=== PATIENT | female | born 1965 | race Caucasian/White ===

== ENCOUNTER 2023-05-23 06:06 | Day surgery (SDC) | payer BC, SELFPAY ==
[2023-05-23] VITALS (11 sets, daily range): BP systolic 115–137; BP diastolic 71–90; BMI 32.3
[2023-05-23] MEDS: TYLENOL 1000 MG PO (06:23)
[2023-05-23] MEDS: NORMOSOL-R 1000 IV (06:45)
--- NOTE | 2023-05-23 07:03 | W.SUR.PREOP ---
Pre-Operative Surgical Note
-
I have examined this patient prior to the performance of the scheduled procedure.
The patient's condition is unchanged from the time of the current History and
Physical and the patient is able to undergo the scheduled procedure.
--- NOTE | 2023-05-23 09:13 | W.IMMPOSTOP ---
Addendum entered and electronically signed by Nitish Ardon MD 05/23/23 09:23:
# [id number]
Original Note:
Surgical Immed Post Op Note
-
Primary Surgeon: Reva
Assisting Surgeon: None
Pre-op Diagnosis: Chronic calculus cholecystitis, history of percutaneous cholecystostomy tube
Post-op Diagnosis: Chronic calculus cholecystitis, history of percutaneous cholecystostomy tube
Procedure Performed: Laparoscopic cholecystectomy
Anesthesia Type: GETA +0.25% Marcaine
Specimen / Cultures: Gallbladder
Estimated Blood Loss: 10 mL
Complications: None immediate
Operative Findings: Previous percutaneous cholecystostomy tube dislodged and encased within the omentum. Removed. Cholecystectomy completed. Cystic duct and artery individually controlled with hemoclips. Gallbladder removed off liver bed intact.
Some scarring along liver margin suggestive of previous percutaneous cholecystostomy tube tract from a transhepatic approach. Gallbladder extracted at epigastric 12 mm trocar site.
Plan: Routine postop care, DC home
[2023-05-23] MEDS: MOTRIN 600 MG PO (11:25)
== END 2023-05-23 11:45 | disposition home or self-care (01) ==
LOC: SDS 06:06
PROVIDERS: ATTENDING PHYSICIAN Surgery
DX: K80.10 Calculus of gallbladder with chronic cholecystitis without obstruction (principal); Z98.890 Other specified postprocedural states
CPT/HCPCS: 47562; 88304

== ENCOUNTER 2023-08-06 05:51 | Day surgery (SDC) | payer BC, SELFPAY ==
[2023-07-23 12:44] VITALS: BMI 34.9
[2023-07-23 13:32] LABS: % Basophils 0.7 % (0-2); % Eosinophils 1.3 % (0-6); % Immature Granulocytes 0.3 % (0-0.5); % Lymphocytes 24.5 % (20.5-51.1); % Monocytes 10.2 % (1.7-9.3); Absolute Basophils 0.1 10^3/uL (0-0.2); Absolute Eosinophils 0.1 10^3/uL (0-0.7); Absolute Lymphocytes 1.8 10^3/uL (1.2-3.4); Absolute Monocytes 0.7 10^3/uL (0.1-0.6); Absolute Neutrophils 4.5 10^3/uL (1.4-6.5); Hematocrit 38.8 % (37.0-47.0); Mean Corp Hgb Conc. 33.5 g/dL (33.0-37.0); Mean Corpuscular Hgb 28.4 pg (27.0-31.0); Mean Corpuscular Volume 84.7 fL (81.0-99.0); Nucleated Red Blood Cells % 0 %; Platelet Count 296 10^3/uL (130-400); Red Blood Cell Count 4.58 10^6/uL (4.20-5.40); Red Cell Dist. Width 15.7 % (11.5-14.5); White Blood Cell Count 7.2 10^3/uL (4.8-10.8)
[2023-07-23 13:36] LABS: INR 1.71; PT 20.2 Sec (11.4-14.6)
[2023-07-23 13:37] LABS: ALT (SGPT) 40 U/L (0-35); AST (SGOT) 50 U/L (14-36); Albumin 4.2 g/dl (3.5-5.0); Alkaline Phosphatase 65 U/L (38-126); Blood Urea Nitrogen 15 mg/dl (7-17); Calcium 9.6 mg/dl (8.4-10.2); Carbon Dioxide 22 mmol/L (22-30); Chloride 109 mmol/L (98-107); Estimated Creatinine Clearance 90 ml/min; Glucose 100 mg/dl (70-99); Magnesium 2.1 mg/dl (1.6-2.3); Potassium 3.8 mmol/L (3.5-5.1); Sodium 138 mmol/L (135-145); Total Bilirubin 1.1 mg/dl (0.2-1.3); Total Protein 6.5 g/dl (6.3-8.2); eGFR > 60.00
--- NOTE | 2023-07-23 14:29 | HPS.HSE ---
Family Physician
-
Family Physician: Chepe Ricks
Chief Complaint
-
Paroxysmal atrial fibrillation.
History of Present Illness
The patient is a 58 year old female presenting today for paroxysmal atrial fibrillation. Her primary language is [place]; however, her spouse, Darlyn, is present for translation. She reports a wide variety of symptoms associated with
this arrhythmia, which include palpitations, dyspnea especially with exertion, and fatigue. She previously underwent a cardioversion late last year due to her atrial fibrillation. She is on current pharmacological therapy with Digoxin, Metoprolol
Tartrate, and Verapamil. She takes Xarelto for oral anticoagulation. She notes that her current symptoms greatly interfere with her activities of daily living and are overall impacting her quality of life. She is interested in pursuing pulmonary
vein isolation for further arrhythmia management. She denies any current complaints today such as chest pain or shortness of breath at rest, nausea, vomiting, diarrhea, lightheadedness, dizziness, cough, sore throat, or fever.
Medical History
Past Medical History
Past Medical History: Reports Other
Additional Past Medical History:
1. Paroxysmal atrial fibrillation, status post cardioversion 2022; pharmacological therapy with Digoxin, Metoprolol Tartrate, and Verapamil, oral anticoagulation with Xarelto.
2. Hypertension.
3. Mild-moderate aortic regurgitation.
4. Mild mitral regurgitation.
5. Small pericardial effusion on chest CT 07/23/2023.
6. Sarcoidosis with mediastinal and hilar lymphadenopathy.
7. Small left and ilpjk-cc-qazwicwl right pleural effusions on chest CT 07/23/2023.
8. Chronic constipation.
9. Mildly elevated transaminases.
10. Obesity, BMI 34.8.
11. Remote history of tobacco abuse.
Past Surgical History: Reports Other
Additional Past Surgical History:
1. Cardioversion.
2. Cholecystectomy.
3. Lung biopsy.
Social History
Tobacco: Former Smoker (She is a former infrequent cigarette smoker who quit tobacco altogether 40+ years ago. )
Alcohol: Other (Seldom alcohol use reported. )
Living: Other (She lives with her spouse and son in a 2 story home. )
Family History
Family History: Not pertinent
Allergies / Home Medications
Allergy/Medication List:
Home medications:
1. Digoxin 125 mcg p.o. daily.
2. Metoprolol tartrate 50 mg p.o. twice a day.
3. Olmesartan 40 mg p.o. at bedtime.
4. Miralax 17 grams p.o. daily.
5. Verapamil 360 mg p.o. daily.
6. Xarelto 20 mg p.o. every evening.
7. Hydrochlorothiazide 25 mg p.o. daily.
Allergies: No known allergies.
Review of Systems
-
A 12 point ROS was completed and negative except as noted: Yes
Physical Exam
Vital Signs
Blood pressure 140/88. Heart rate 74. Respirations 18. Pulse ox 96% on room air.
Height 5 feet, 5.5 inches. Weight 96.4 kg. BMI 34.8.
Physical Exam
General: Well Developed, Well Nourished and No Apparent Distress
HEENT: NormoCephalic, Moist mucous membranes, Atraumatic and PERRLA
Respiratory: Clear
Cardiac: Irregular Rhythm
GI: Soft, Non Tender, Non Distended and Other (Obese. )
Musculoskeletal: Normal Gait & Station
Skin: Warm and Dry
Neuro: AO x 3 and Nonfocal/grossly intact
Laboratory Results
-
07/23/23 13:16
07/23/23 13:16
Laboratory Results
PT 20.2 Sec (11.4-14.6) H 07/23/23 13:16
INR 1.71 07/23/23 13:16
Total Bilirubin 1.1 mg/dl (0.2-1.3) 07/23/23 13:16
AST 50 U/L (14-36) H 07/23/23 13:16
ALT 40 U/L (0-35) H 07/23/23 13:16
Alkaline Phosphatase 65 U/L (38-126) 07/23/23 13:16
Type and screen: A negative.
EKG 07/23/2023: Atrial fibrillation with competing junctional pacemaker.
Chest CT 07/23/2023: Short segment common vestibule for the left superior and inferior pulmonary veins, fairly commonly seen and considered normal variant. No evidence for left atrial thrombus. Small left and skvyu-mp-lhizuaph right pleural
effusions. Small pericardial effusion. Mildly enlarged mediastinal and hilar lymphadenopathy, likely reactive.
Echocardiogram 03/14/2021: Normal left ventricular size, wall thickness, and systolic function. No regional wall motion abnormalities are seen. The ejection fraction is estimated at 60-65%. Grade 2 diastolic dysfunction. Mild to moderate aortic
regurgitation. Mild rheumatic changes of the mitral valve no evidence of mitral stenosis and mild mitral regurgitation.
Impression/Plan
-
IMPRESSION/PLAN:
1. Paroxysmal atrial fibrillation: The patient is in need of pulmonary vein isolation with Dr. Marino Paredes on 08/06/2023. The benefits and risks of the procedure have been explained to the patient. The patient understands these risks and wishes to
proceed. She will not be required to undergo a pre-procedural transesophageal echocardiogram as she has been compliant with her home oral anticoagulation. She is aware to continue her Xarelto up until the night prior to her procedure unless she is
otherwise specified by her surgeon.
2. Small left and meucb-il-yfdcnqas right pleural effusions, small pericardial effusion: Results discussed with surgeon pre-operatively. She was previously taking Hydrochlorothiazide 25 mg p.o. 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 Saeed Arguello. Both the patient and her spouse deny this was stopped due to an adverse reaction. She was advised to go back on this medication daily for treatment. She confirms that she has enough tablets at home to last her
approximately 1 month.
[2023-08-06] VITALS (11 sets, daily range): BP systolic 109–140; BP diastolic 77–96; BMI 34.3
[2023-08-06 09:05] LABS: ACT-LR - POC 366 Seconds (116-155)
[2023-08-06 09:22] LABS: ACT-LR - POC 287 Seconds (116-155)
[2023-08-06 09:46] LABS: ACT-LR - POC 281 Seconds (116-155)
--- NOTE | 2023-08-06 10:21 | ITS.CL.ABL ---
Certified Breastfeeding Educator - Ablation
Ablation
Procedure Report:
ELECTROPHYSIOLOGY ABLATION STUDY
DATE:: August 06, 2023 REFERRING: Dr. Saeed Arguello
INDICATION: Persistent supraventricular tachycardia in the form of atrial fibrillation.
HISTORY: See H and P. As above
ANTIARRHYTHMIC DRUG: Verapamil, metoprolol, digoxin
PRE-PROCEDURE VICTOR MANUEL: No atrial thrombus
PRESENTING RHYTHM: Atrial fibrillation
'TIME-OUT': called and confirmed.
SEDATION/ANESTHESIA: provided via the anesthesia department using general anesthesia (LMA).
INTRAVENOUS/ARTERIAL ACCESS:
Right femoral venous - 10 Fr, 8Fr
Left femoral venous - 8 Fr, 6 Fr
Left femoral arterial - 5 Fr
Ultrasound guidance for bilateral femoral vein access was utilized by me to obtain access with demonstration of normal anatomy
CHADS-VASC Score:
HAS-Bled Score
PROCEDURE:
1. A decapolar CS catheter was placed within the CS for mapping and pacing. This was also used as the reference catheter for the 3-D map.
2. The intracardiac ultrasound catheter was positioned in the RA to identify the FO for targeting of transseptal puncture, assist in identification of the pulmonary vein ostia, monitoring pre and post ablation pulmonary vein flow velocities,
monitoring for 'bubble' formation during RF application as a sign of thermal injury, and to monitor for pericardial effusion during mapping and ablation procedure. Left atrial size, LV ejection fraction, and pulmonary vein flows were monitored
pre and post ablation procedure. The other valves were inspected and found to be free of significant regurgitation or stenosis.
3. Half of the calculated heparin bolus was administered prior to the first transeptal puncture. Transseptal puncture was performed to diagnose RA and LA pressure so that safety of LA mapping and ablation could be further assessed, and to access
the left atrium and pulmonary veins for mapping and ablation. This entailed advancing an 8 Fr SL-1 sheath with dilator into the superior vena cava and withdrawing both (monitoring intracardiac ultrasound, fluoroscopy and tip pressure) with the tip
oriented toward the atrial septum. The fossa ovalis was engaged (indicated by sudden displacement of the sheath tip as well as tenting of the fossa seen on intracardiac ultrasound). Left atrial access required a pass with the Brock[place]rough needle
extended. Left atrial catheter position was confirmed by pressure monitoring (RA mean pressure 8 mm Hg and LA mean presure 14 mm Hg), LA saturation (99%), as well as fluoroscopy. The sheath was advanced over the dilator and positioned in the left
atrium. This procedure was repeated for the Agilis sheath. The remainder of the calculated heparin bolus was administered and heparin was
infused to maintain ACT at 300 -350 seconds throughout the case.
4. RA pacing was performed via the proximal decapolar poles and LA pacing was performed via the distal decapolr poles.
5. A quadrapolar catheter was first positioned at the His position for His Bundle recording which was tagged via the 3-D Navex sytem, and then passed to the RVA for RV pacing and recording.
6. The 20 mm cryoballoon and 15 mm octapolar G40 catheter placed each of the LIPV, LSPV, RSPV and the RIPV.
7. Next, a 3-D map was created using Navex. A 3-D reconstructed CT image was compared to the 3-D Navex map to assist in anatomic interpretation, mapping and ablation. The CT image and the NavX image were fused.
8. Pulmonary vein and extrapulmonary vein lesions were given. The 23 mm cryoballoon was utilized to get the distal vania of the left veins with a 2-minute freezing application from the superior vania and inferior vania durably isolating the
left system. Prior to this a 28 mm cryoballoon utilized an extrapulmonary vein lesion to the roof for 2 minutes outside the left superior pulmonary vein and a second 4-minute freezing application of the posterior wall outside the left superior
pulmonary vein. For the pulmonary veins 1 distinct 3 and 1 distinct 2-minute freeze application left superior pulmonary vein, 2 distinct 3-minute freezing pulmonary applications to the left inferior pulmonary vein, one 3.5-minute freezing
application to the right superior pulmonary vein and one 3.5 and one 2-minute freezing application to the right inferior pulmonary vein. This led to entrance block in all 4 pulmonary veins and the patient was converted to sinus rhythm with 1 200 J
synchronized biphasic shock.
EP study post cardioversion demonstrated no other inducible tachyarrhythmia.
9. Normal sinus and AV node function noted.
TOTAL FLOURO TIME: 16.7 minutes 160 mGy
TOTAL RF DURATION: 0 minutes
REVERSAL OF HEPARIN: 35 mg of protamine, slow IV administration
COMPLICATIONS:
None
Intracardiac US shows no pericardial effusion post ablation.
SUMMARY:
Complex left atrial mapping and ablation.
Isolation of all 4 pulmonary veins as above. Extrapulmonary vein lesions to the roof and the posterior wall outside the left superior pulmonary vein. A 23 mm cryoballoon was utilized for the distal vania and the left system in addition to the
above.
RECOMMENDATIONS:
1. Admit to monitored bed.
2. Resume anticoagulation
3. Out of bed 4 hours
4. Discontinue digoxin and consider the same to discharge
Copy to: Dr. Saeed Arguello
--- NOTE | 2023-08-06 15:29 | W.PN.UPDATE ---
Update Note
Progress Note Update
58 yo WF s/p PVI (same day)/ She feels good, mild sore throat, no cp, sob, phillip diet, voiding, amb w/o dizziness. EKG SR no ecotpy, b/l groins c/d/i no HT, soft. She will take her Xarelto at 4pm at home. She will continue metoprolol. Activity
restrictions reviewed. She will f/u Dr. Arguello in 3 mo. She is for d/c home after 3pm.
SUMMARY:
Complex left atrial mapping and ablation.
Isolation of all 4 pulmonary veins as above. Extrapulmonary vein lesions to the roof and the posterior wall outside the left superior pulmonary vein. A 23 mm cryoballoon was utilized for the distal vania and the left system in addition to the
above.
RECOMMENDATIONS:
1. Admit to monitored bed.
2. Resume anticoagulation
3. Out of bed 4 hours
4. Discontinue digoxin and consider the same to discharge
Copy to: Dr. Saeed Arguello
== END 2023-08-06 15:25 | disposition home or self-care (01) ==
LOC: CATH 05:51
PROVIDERS: ATTENDING PHYSICIAN Internal Medicine Cardiovascular Disease; FAMILY PHYSICIAN Internal Medicine; OTHER PHYSICIAN Internal Medicine Cardiovascular Disease
DX: I48.0 Paroxysmal atrial fibrillation (principal); R06.00 Dyspnea, unspecified; R53.83 Other fatigue; R00.2 Palpitations; I10 Essential (primary) hypertension; I34.0 Nonrheumatic mitral (valve) insufficiency; I31.39 Other pericardial effusion (noninflammatory); D86.9 Sarcoidosis, unspecified; R59.0 Localized enlarged lymph nodes; J90 Pleural effusion, not elsewhere classified; K59.09 Other constipation; E66.9 Obesity, unspecified; Z68.34 Body mass index [BMI] 34.0-34.9, adult; Z87.891 Personal history of nicotine dependence; Z79.01 Long term (current) use of anticoagulants
CPT/HCPCS: C1894; C1733; C1730 ×2; C1893; C1766; 36415; 75572; 76937; 80053; 83735; 85025; 85347; 85610; 86850; 86900; 86901; 93005; 93656; Q9967

== ENCOUNTER 2024-05-10 06:33 | Inpatient (IN) | payer BC, SELFPAY ==
[2024-05-10] VITALS (35 sets, daily range): BP systolic 112–157; BP diastolic 68–102; BMI 33.2; BMI 33.3
[2024-05-10] MEDS: CARDIZEM 20 MG IV (02:39)
[2024-05-10 02:40] LABS: % Basophils 0.2 % (0-2); % Eosinophils 0.2 % (0-6); % Immature Granulocytes 0.3 % (0-0.5); % Lymphocytes 15.7 % (20.5-51.1); % Monocytes 8.1 % (1.7-9.3); % Neutrophils 75.5 % (42.2-75.2); Absolute Lymphocytes 1.9 10^3/uL (1.2-3.4); Absolute Neutrophils 9.2 10^3/uL (1.4-6.5); Hematocrit 39.5 % (37.0-47.0); Hemoglobin 13.5 g/dL (12.0-16.0); Mean Corp Hgb Conc. 34.2 g/dL (33.0-37.0); Mean Corpuscular Volume 90.8 fL (81.0-99.0); Mean Platelet Volume 10.2 fL (7.4-10.4); Nucleated Red Blood Cells % 0 %; Platelet Count 309 10^3/uL (130-400); Red Blood Cell Count 4.35 10^6/uL (4.20-5.40); Red Cell Dist. Width 12.8 % (11.5-14.5); White Blood Cell Count 12.2 10^3/uL (4.8-10.8)
[2024-05-10] MEDS: CARDIZEM 125 IV ×4 (02:41→22:29)
--- NOTE | 2024-05-10 02:43 | ED.GENMED ---
History of Present Illness
General
Chief Complaint: Cardiac Symptoms
Source: patient and family
Exam Limitations: none
Time Seen by Provider: 05/10/24 01:59
Nursing documentation reviewed up to this point in time: agreed with
History of Present Illness
History of Present Illness:
Pleasant 58-year-old female presents to the emergency department with palpitations, chest pain, and weakness. Patient does have a history of paroxysmal atrial fibrillation and is on Xarelto. She reports that the symptoms began on Friday and have
been progressively worsening. Denies fever, chills, nausea or vomiting. She has had a cardiac ablation in the past. She does follow with an [place] brimmer blocker. She has also been compliant with her other medications.
Review of Systems
Review of Systems
Allergies reviewed?: Yes
All Other Systems: ROS reviewed and negative except as documented in HPI and ROS
Constitutional: Reports fatigue and sleep disturbance
EENT: Reports no symptoms
Respiratory: Reports no symptoms
Cardiac: Reports chest pain and palpitations
ABD/GI: Reports no symptoms
: Reports no symptoms
Musculoskeletal: Reports no symptoms
Skin: Reports no symptoms
Neurological: Reports no symptoms
Endocrine: Reports no symptoms
Hematologic/Lymphatic: Reports no symptoms
Psychiatric: Reports no symptoms
Phy Exam
General Physical Exam
General Presentation: well appearing and mild distress
General age: appears stated age
General Skin: warm and dry
General Habitus: normal
General Mental: alert
General Hydration: appears well hydrated
ENT Exam
ENT Exam: EOMI, pharynx normal, neck supple and normocephalic
Eye Exam
Eye Exam: PERRL, cornea clear and conjunctiva normal
Cardiovascular Exam
Cardiovascular Exam: no edema, no murmur, normal peripheral pulses and irregularly irregular
Pulmonary Exam
Pulmonary Exam: lungs clear, no respiratory distress, no rales, no crackles, no rhonchi, no stridor, no wheezing and no cough
Gastrointestinal Exam
Gastrointestinal Exam: normal bowel sounds, non tender, soft, no organomegaly, no pulsatile mass and non distended
Neurological Exam
Neurological Exam: alert, oriented x3, no motor deficits and speech normal
Musculoskeletal Exam
Musculoskeletal Exam: full ROM and no edema
Skin Exam
Skin Exam: normal color, warm/dry, no rash and no petechia
Psychiatric Exam
Psychiatric Exam: normal mood/affect
Course
Orders/Labs/Results
Orders:
Orders
05/10/24 01:41
ECG [Electrocardiogram (*1)] Urgent
Reason for Study: Chest Pain
EKG- Treatment ONCE
05/10/24 02:13
Cardiac Monitoring- Treatment ONCE
CR Chest - 2 Views Urgent
Comment:
Reason For Exam: palpitations
05/10/24 02:19
Complete Blood Count/With Diff Urgent
Comprehensive Metabolic Panel Urgent
Magnesium Urgent
PTT Urgent
Prothrombin Time Urgent
TSH Urgent
Troponin I Urgent
05/10/24 02:27
Diltiazem 125 mg/125 ml Nss [Cardizem] 125 mg in 125 ml IV NOW
Initial dose in mg/hr, then titrate:: 5
Titrate to keep:: Heart rate 80-100 bpm
Titrate by mg/hr:: 5 mg/hr
Frequency of titrations (minutes):: 15
Maximum dose in mg/hr:: 15
Diltiazem HCl [Cardizem] 20 mg IV NOW STA
Abnormal Lab Results
05/10/24
02:19
WBC 12.2 H 10^3/uL
(4.8-10.8)
Absolute Neuts (auto) 9.2 H 10^3/uL
(1.4-6.5)
Absolute Monos (auto) 1.0 H 10^3/uL
(0.1-0.6)
Neutrophils % 75.5 H %
(42.2-75.2)
Lymphocytes % 15.7 L %
(20.5-51.1)
PT 25.0 H Sec
(11.4-14.6)
APTT 43.0 H Sec
(23.4-35.0)
BUN 28 H mg/dl
(7-17)
Creatinine 1.2 H mg/dL
(0.6-1.0)
Glucose 153 H mg/dl
(70-99)
AST 38 H U/L
(14-36)
ALT 41 H U/L
(0-35)
Troponin I 0.133 H* ng/ml
05/10/24 02:19
05/10/24 02:19
Vital Signs
Initial and Last Documented VS:
Initial Vital Signs
Temp Pulse Resp Pulse Ox
97.8 F 144 24 98
05/10/24 01:49 05/10/24 01:49 05/10/24 01:49 05/10/24 01:49
Last Documented Vital Signs
Temp Pulse Resp BP Pulse Ox
97.8 F 94 22 140/97 95
05/10/24 01:49 05/10/24 05:00 05/10/24 05:00 05/10/24 05:00 05/10/24 05:00
*Critical Care Note
Total Time (30-74mins, 75-104mins- exclusive of procedures): Not Applicable
ED Attending Note
-
Portions of this chart may have been created with voice recognition software.� Occasional wrong word or��sound alike� substitutions may have occurred due to the inherent limitations of voice recognition software.
Discharge Plan
Departure
Patient Disposition: Admit
Date of Disposition: 05/10/24
Time of Disposition: 06:02
Admit to: IVU
Presentation/result/management discussed w/ accepting MD/DO: Hospitalist
Discharge Problem:
Atrial fibrillation, Chest pain
Prescriptions:
No Action
verapamil 360 mg Capsule,Ext Rel. Pellets 24 Hr
360 mg PO DAILY
olmesartan 40 mg Tablet
40 mg PO HS
Xarelto 20 mg Tablet
20 mg PO QPM
polyethylene glycol 3350 [Miralax] 17 gram Powder In Packet
17 g PO DAILY
metoprolol tartrate 50 mg Tablet
50 mg PO BID
hydrochlorothiazide 25 mg Tablet
25 mg PO DAILY
Referrals:
Chepe Ricks MD [Family Provider] -
Interventions
Interventions:
*Risk Screen - Suicide Last Done: 05/10/24 02:10
*General Assessment Last Done: 05/10/24 02:10
*Neglect/Abuse Screening Last Done: 05/10/24 02:10
ED- Fall Risk Assessment Last Done: 05/10/24 02:10
*ED COVID-19 Vaccine History Last Done: 05/10/24 02:10
ED- Pulmonary Assessment Last Done: 05/10/24 02:10
ED- Cardiac Assessment Last Done: 05/10/24 02:10
Discharge Date and Time
Print Language: OCCITAN
[2024-05-10 02:49] LABS: INR 2.26
[2024-05-10 02:55] LABS: ALT (SGPT) 41 U/L (0-35); AST (SGOT) 38 U/L (14-36); Albumin 4.4 g/dl (3.5-5.0); Alkaline Phosphatase 68 U/L (38-126); Blood Urea Nitrogen 28 mg/dl (7-17); Calcium 9.7 mg/dl (8.4-10.2); Carbon Dioxide 22 mmol/L (22-30); Chloride 103 mmol/L (98-107); Estimated Creatinine Clearance 62 ml/min; Glucose 153 mg/dl (70-99); Potassium 3.8 mmol/L (3.5-5.1); Sodium 138 mmol/L (135-145); Total Bilirubin 0.7 mg/dl (0.2-1.3); Total Protein 6.8 g/dl (6.3-8.2)
[2024-05-10 03:18] LABS: Troponin I 0.133 ng/ml
[2024-05-10 03:41] LABS: TSH 1.87 uIU/ml (0.47-4.68)
--- NOTE | 2024-05-10 06:03 | HPS.HSE ---
Family Physician
-
Family Physician: Chepe Ricks
Chief Complaint
-
Chest pain, tachycardia
History of Present Illness
This is a 58-year-old female with past medical history of hypertension, proximal atrial fibrillation status post ablation and cardioversion who is currently anticoagulated presenting to the emergency department with approximately 4 days of
intermittent chest pain.
Patient reports onset of chest pain 4 days ago. She was not doing any particular activity at that time. She reports that when she had pain was a burning sensation in the midsternal region rising up to her neck and associated with tachycardia as
well as high as 160 and a blood pressure of 200 systolic. She took extra doses of nifedipine and clonidine with improvement in her blood pressure. However this also resulted in hypotensive episode. He reported that her heart rate did improve as
well to around 100. However he has remained irregular and has been running intermittently high since then. She reports dyspnea on exertion but no exertional chest pain. She denies any vomiting. She reports having some sweating. She reported
that she had similar episode of chest pain today but this time the pain seemed to radiate down into her abdomen which actually prompted her to come to the emergency department. She reports compliance with her Xarelto. She is however not on any
selective beta-nayana but rather on labetalol.
Of note patient had an ablation in July 2023. She had good dual rhythm control status post ablation until August. She was traveling in [place] at a time and had recurrence of A-fib RVR. She was hospitalized for several days where she had
attempted cardioversion x 3. She had successful conversion to sinus rhythm after third cardioversion. She reports that she has been in regular rhythm as checked by IR [employer] device since then up until 4 days ago.
She denies any recent lower extremity swelling. She denies recent orthopnea PND or rapid weight gain. She denies any recent exertional chest pain.
In the emergency department she was afebrile, she was tachycardic to as high as 160, blood pressure was 140/90. She was at 95% on room air. ECG showed atrial fibrillation with rapid ventricular response at a rate of 134. Troponin was 0.133. He
had slight elevations in AST and ALT. INR was 2.26. Electrolytes was unremarkable, BUN/creatinine were stable except for a slight rise in creatinine to 1.2 from 0.8. Chest x-ray shows no acute infiltrates. There is no mediastinal widening.
She is currently chest pain-free after being placed on diltiazem with some rate control due to the 110s.
Medical History
Past Medical History
Past Medical History: Reports Arrhythmia (Paroxysmal atrial fibrillation), HTN, Hypercholesterolemia and Valvular Disease (Aortic valve insufficiency)
Past Surgical History: Reports Cholecystectomy
Social History
Tobacco: Non-smoker
Alcohol: Occasional
Drug: None
Personal:
Living: With Family
Family History
Family History: Not pertinent
Allergies / Home Medications
Allergies reflects when Allergies were last updated in [facility].
Home Medications with original date entered in [facility]
Allergy/Medication List:
Allergies
Allergy/AdvReac Type Severity Reaction Status Date / Time
No Known Allergies Allergy Verified 05/10/24 01:40
Home Medications
olmesartan 40 mg tablet 40 mg PO HS 05/21/23
rivaroxaban 20 mg tablet (Xarelto) 20 mg PO QPM 05/21/23
Labetalol 300 mg tablet 300 mg p.o. twice daily
Nifedipine 60 mg tablet 60 mg p.o. daily
Clonidine 0.1 mg tablet 0.1 mg p.o. as needed
Review of Systems
-
History Source: Patient
Constitutional: Reports No Symptoms
EENT: Reports No Symptoms
Respiratory: Reports No Symptoms
Cardiac: Reports Chest Pain
Abdomen/GI: Reports No Symptoms
: Reports No Symptoms
Musculoskeletal: Reports No Symptoms
Skin: Reports No Symptoms
Neurological: Reports No Symptoms
Endocrine: Reports No Symptoms
Hematologic/Lymphatic: Reports No Symptoms
Psych: Reports No Symptoms
Physical Exam
Vital Signs
Vital Signs
Temp Pulse Resp BP Pulse Ox
97.8 F 96 25 133/87 95
05/10/24 01:49 05/10/24 06:00 05/10/24 06:00 05/10/24 06:00 05/10/24 06:00
Physical Exam
General: Well Developed, Well Nourished, No Apparent Distress, Comfortable and Conversant
HEENT: NormoCephalic, Anicteric, Moist mucous membranes and Atraumatic
Respiratory: Clear
Cardiac: S1/S2, Irregular Rhythm and Tachycardia
Breast: Deferred by me
GI: Soft, Non Tender, Non Distended and Normal Bowel Sounds
Rectal: Deferred by Provider
Genito-urinary: Deferred by me
Musculoskeletal: No Clubbing, No Cyanosis and No Edema
Skin: Warm
Neuro: AO x 3 and Nonfocal/grossly intact
Hematologic/Lymphatic: No Lymphadenopathy
Psych: Calm
Laboratory Results
-
05/10/24 02:19
05/10/24 02:19
Laboratory Results
PT 25.0 Sec (11.4-14.6) H 05/10/24 02:19
INR 2.26 05/10/24 02:19
APTT 43.0 Sec (23.4-35.0) H 05/10/24 02:19
Total Bilirubin 0.7 mg/dl (0.2-1.3) 05/10/24 02:19
AST 38 U/L (14-36) H 05/10/24 02:19
ALT 41 U/L (0-35) H 05/10/24 02:19
Alkaline Phosphatase 68 U/L (38-126) 05/10/24 02:19
Troponin I 0.133 ng/ml H* 05/10/24 02:19
Data Reviewed
-
Diagnostic Radiology: Image Personally Visualized and interpreted
Medical Tests (Nuc Med, Echo, EKG etc): Image Personally Visualized and interpreted
Lab Data: Labs Reviewed by me
Old Records: Reviewed
Impression/Plan
-
IMPRESSION:
58-year-old with a history of functional atrial fibrillation status post ablation and multiple cardioversions in the last year presenting to the emergency department with A-fib RVR and a burning chest pain that seems to have been intermittent over
the last 4 days. Troponin is elevated at 0.13, ECG consistent with A-fib RVR at [address]-T wave changes. Labs essentially unremarkable. While or description of chest pain could be CAD, it fits more likely a rate related ischemia given
her tachycardia to 1 60 during onset of pain and improvement with rate control on diltiazem. However cannot rule out a dissection either. She has been compliant with her Xarelto and INR was 2.2 on arrival. No obvious acute abnormalities on chest
x-ray.
PLAN:
1. Chest pain - demand ischemia vs CAD vs dissection (radiation down to the abdomen/pelvis but not arms, jaws, shoulder). Also possible GERD. Currently CP free.
- admit to ivu
- already on AC and therapeutic
- aspirin 324 x 1
- will check CT chest abd pelvis dissection study
- trend troponin
- echo,
- cardiology consult
2. AFIB RVR - uncontrolled rate, some rheumatic finding on aortic and mitral valves recent echo with moderate MR, mild to moderate AI with central jet
- on Xarelto
- rate control with diltiazem gtt for now
- NPO, history of some resistance to cardioversion but if demand ischemia, may need CV
- has been compliant with Xarelto for 2 years, no missing doses, so likely does not need VICTOR MANUEL
- echo as above
3. HTN - patient on likely less than ideal regimen
- continue olmesartan
- continue diltiazem for now
- nifedipine 60 bid
- may benefit from carvedilol after rate controlled
- hold labetolol for now
- avoid clonidine prn
DVT PPX - on Xarelto
Code status - Full Code
[2024-05-10 07:19] LABS: Troponin I 0.115 ng/ml
--- NOTE | 2024-05-10 09:21 | EDRN ---
ED cardizem gtt ordered by Dr. Zamorano, order was only active for 1 minute. Pt is to be on cardizem gtt per admitting provider note Arianne, who left for the day. Bernardino Perry contacted via TT and ordered cardizem gtt.
--- NOTE | 2024-05-10 09:42 | EDRN ---
0942 --TT sent to Bernardino Perry regarding pt maxed on cardizem gtt @15mg/hr w her HR still being 110s-130s, at times 160. Pt currently in afib, no CP. BP 140/102. Per Dr. Perry he will talk to cardiology and they will come see pt. Admission q3 trop
sent and repeat EKG done.
[2024-05-10 10:23] LABS: Troponin I 0.124 ng/ml
--- NOTE | 2024-05-10 11:17 | EDRN ---
Dr. Bernardino Perry made aware of pts trop trending back up, pt w no CP. Pt on 15mg/hr of cardizem. HR in 120-150s, afib. Dr. Perry aware and okay w pts HR. Awaiting cardiology input.
--- NOTE | 2024-05-10 11:18 | CON.CAR ---
Addendum entered and electronically signed by Prasad Dent MD 05/10/24 13:06:
I saw and examined the patient.
The ENVIRONMENTAL AIR SPECIALIST or PA's note was reviewed and I agree with the note.
Comment: General: Well developed, well nourished in NAD.
Neck: Supple, no JVD, HJR, carotids +2 B/L, no bruits bilaterally.
Heart: Non displaced PMI, Irreg, no murmurs, No S3, S4, no rubs.
Lungs: Clear to auscultation bilaterally, no wheeze, rhonchi, rubs bilaterally,
normal expiratory phase.
Abdomen: Normal bowel sounds, soft, non-tender, non-distended.
Extremities: No clubbing, cyanosis or edema bilaterally.
Neuro: Grossly nonfocal, awake, alert and oriented x3.
Leigh Ann has a h/o afib s/p ablation 2023 on Xarelto, htn, go, htn. She presents with rapid afib after palpitations for 4 days.
Will admit and load with amiodarone in attempt to get off iv cardizem. Plan on cardioversion in 24 to 48 hours and outpt evaluation for repeat aablation. check echo with elevated trop - suspect non ischemic myocardial injury. d/w pt and family at
bedside
Original Note:
Consultation
Consultation Request
Date/Time Consultation Requested: 05/10/2024, 0930
Date/Time Consultation Performed: 05/10/2024, 1130
Requesting Provider: KENNEDY Granados
Performing Provider: KENNEDY José for Dr. Dent
Reason for Consultation: Chest pain, A-fib, RVR
Medical History
-
Chief Complaint: Chest pain
History of Present Illness:
58-year-old female with history of paroxysmal atrial fibrillation status post PVI 07/2023 Dr Paredes(on Xarelto), hypertension, obstructive sleep apnea (on CPAP), mitral regurgitation, aortic insufficiency, presents for evaluation due to 4-day
history of intermittent chest pain with palpitations and heart rates up to 200 bpm and home setting. Patient reports she was sick with respiratory illness last week and began experiencing the symptoms as illness was improving. No chest pain
yesterday but felt weak with presyncope. Presented to ED due to symptoms. ER evaluation:
EKG: A-fib with RVR 134 bpm
Chest x-ray: No vascular congestion
CTA chest/abdomen: No dissection
Troponin 0.133�0 0.115�0.124
TSH 1.87 BUN/creatinine 28/1.2, K3.8, mag 2.0
Hemoglobin 13.5, white blood cell count 12.2.
Patient has longstanding history of paroxysmal and persistent atrial fibrillation.
Had cryo balloon ablation of all 4 pulmonary vein and roof and posterior wall outside of the left superior pulmonary vein on 08/06/[address] Paredes. A month later in August 2023 she was in [place] visiting her daughter when she had recurrent
atrial fibrillation. She was admitted to a hospital there and underwent cardioversion x 2 that failed to convert her to sinus rhythm. She was started on IV amiodarone drip and eventually had repeat cardioversion which restored sinus rhythm. She
was discharged on amiodarone 200 mg daily and continued on Xarelto. Echo at that time while in [facility] showed EF 35 to 40% thought to be possibly tachycardia induced cardiomyopathy. She was continued on amiodarone for about 6 weeks following the
cardioversion and it was stopped due to risk of long-term side effects and patient with young age. She had a follow-up echocardiogram 09/2023 with EF 65 to 70%, moderate mitral regurgitation, mild to moderate AI.
She had no evidence of recurrent atrial fibrillation until development of symptoms 4 days ago.
Currently Tereza is managed with Xarelto, and labetalol 300 mg twice daily. She was previously on Toprol but it was not felt to be effective at controlling her blood pressure and therefore switched to labetalol 01/2024.
In review of her chart, she has previously used digoxin, Cardizem, verapamil for rate control.
She was diagnosed with sleep apnea this past summer and has used CPAP since then.
Nonsmoker
rare social ETOH
Past medical history:
Atrial fibrillation
-Cryoablation 07/2023
-Recurrent A-fib 08/2023, failed cardioversion x 2, amiodarone IV initiated with successful repeat cardioversion. Maintained amiodarone x 6 weeks
Obstructive sleep apnea on CPAP
Hypertension
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
Mitral regurgitation
Aortic insufficiency
Gallbladder cholecystitis with biliary drainage tube
Past Medical History
Past Medical History: Other (As above)
Past Surgical History: Other (Right biliary tube, laparoscopic cholecystectomy 05/2023)
Social History
Tobacco: Non-Smoker
Alcohol: Occasional (Social at [facility])
Drug: None
Personal:
Family History
Family History: Other (Mother age 45 hypertension, heart disease, maternal grandmother with hypertension, siblings with hypertension)
Allergies / Home Medications
Allergy/AdvReac Type Severity Reaction Status Date / Time
No Known Allergies Allergy Verified 05/10/24 01:40
�Medication �Instructions �Recorded �Confirmed �Type
olmesartan 40 mg tablet 40 mg PO DAILY 05/21/23 05/10/24 History
rivaroxaban 20 mg tablet (Xarelto) 20 mg PO QPM 05/21/23 05/10/24 History
labetalol 300 mg tablet 300 mg PO BID 05/10/24 05/10/24 History
nifedipine 60 mg tablet,extended 60 mg PO DAILYPRN PRN high blood 05/10/24 05/10/24 History
release pressure
Review of Systems
-
History Source: Patient
All other systems: Negative unless noted
Physical Exam
Vital Signs
Temp Pulse Resp BP Pulse Ox
97.8 F 137 29 139/81 98
05/10/24 01:49 05/10/24 11:00 05/10/24 11:00 05/10/24 11:00 05/10/24 09:12
Lab Results
05/10/24 02:19
05/10/24 02:19
Troponin I 0.124 ng/ml H* 05/10/24 09:46
GEN: No distress, awake, Ox3
HEENT: supple, anicteric, mmm
LUNGS: CTA, no wheezes/rales
CV: tachy, irreg, irreg
ABD: soft, BS+, NT/ND
EXT: No edema
NEURO: Gross non-focal
SKIN: No rash
Impression / Plan
-
PCP: Chepe Ricks
Primary scout: Saeed Arguello
Primary EP: Marino Paredes
Impression:
A-fib with rapid ventricular response
Chest pain
Elevated troponin
Hypertension
Obstructive sleep apnea
Mitral regurgitation
Aortic insufficiency
Previous cardiovascular testing:
Echo 10/13/2023: EF 65 to 70%, stage II diastolic dysfunction, mild septal hypertrophy, mild biatrial enlargement, mild mitral stenosis, moderate MR, mild to moderate AI
Echo 09/11 in [place]: EF 35 to 40% when in A-fib with RVR (do not have actual report)
Plan:
58-year-old female with history of paroxysmal atrial fibrillation status post PVI 07/2023 Dr Paredes(on Xarelto), recurrent A-fib 1 month post ablation status post initiation of short-term amiodarone and subsequent cardioversion, tachycardia induced
cardiomyopathy 08/2023, hypertension, obstructive sleep apnea (on CPAP), mitral regurgitation, aortic insufficiency, presents for evaluation due to 4-day history of intermittent chest pain with palpitations and heart rates up to 200 bpm and home
setting, found to be in A-fib
1. A-fib
-Continue Xarelto for anticoagulation
-started Cardizem gtt 15 mg /hr
-Telemetry personally reviewed: A-fib 110s to 130s
-Given her history of difficult to control A-fib, she will likely need an antiarrhythmic to maintain sinus rhythm.
-Hesitant to give a 1C agent given her history of LV dysfunction in the past (was in the setting of A-fib with RVR). Also has not had an ischemic workup.
-Previously used amiodarone for short-term after having recurrent A-fib after ablation with success. Will start at 400 mg TID (I ordered) and plan for CV tomorrow or Wed. .
-EP evaluation to consider repeat ablation
-if exterminator termite antiarrhythmic tx needed, could also consider tikosyn or sotalol
-repeat echo re-eval LV fxn, MR, AI
2. Chest pain
-Troponin mildly elevated, continue to trend.
-Currently chest pain-free
-CT abdomen/pelvis negative for dissection
-CP likely related to rapid afib
3. HTN
-continue home meds: Olmesartan 40 mg daily, nifedipine 60 mg daily, labetalol 300 mg twice daily
4. GO
-continue CPAP
Data Reviewed
-
EKG: Tracing Personally Visualized and interpreted
Medical Tests (Nuc Med, Echo etc): Image Personally Visualized and interpreted
Labs: Labs Reviewed by me
[2024-05-10] MEDS: LOPRESSOR 25 MG PO (11:28)
[2024-05-10] MEDS: TYLENOL 650 MG PO ×2 (14:06→21:31)
[2024-05-10 15:16] LABS: COVID-19 Antigen Negative (Negative)
[2024-05-10 15:28] LABS: Troponin I 0.142 ng/ml
[2024-05-10] MEDS: PACERONE 400 MG PO ×2 (16:15→21:32)
--- NOTE | 2024-05-10 16:56 | PTCARENOTE ---
Rec'd pt from ED. Pt ambulated from stretcher to bed w/ steady gait. Pt dyspneic on exertion but able to recover quickly once sititng. Tele- afib 100s. Cardizem gtt infusing at 15 ml/hr. Pt has no complaints at this time. Oriented pt to room. Spouse
at bedside translating; pt able to understand minimal turkish. Currently in bed; call faith w/in reach.
[2024-05-10] MEDS: XARELTO 20 MG PO (16:59)
--- NOTE | 2024-05-10 17:00 | PTCARENOTE ---
Rec'd pt from ED. Pt ambulated from stretcher to bed w/ steady gait. Pt dyspneic on exertion but able to recover quickly once sititng. Tele- afib 100s. Cardizem gtt infusing at 15 ml/hr. Pt has no complaints at this time. Oriented pt to room. Spouse
at bedside translating; pt able to understand minimal divehi. Ipad correctional sergeant brought to bedside. Currently in bed; call faith w/in reach.
[2024-05-10] MEDS: BENICAR 40 MG PO (21:31)
[2024-05-10 22:14] LABS: Troponin I 0.115 ng/ml
[2024-05-11] VITALS (16 sets, daily range): BP systolic 101–143; BP diastolic 76–115
--- NOTE | 2024-05-11 01:00 | PTCARENOTE ---
Pt received at change of shift. Afib on tele with HR 90s-120s. Cardizem gtt currently infusing at 15mg/hr. Pt denies CP and SOB. Plan of care discussed and pt verbalizes understanding. Pt encouraged not to eat or drink until after she is seen
in AM in case of cardioversion today. Ambulating independently in room without difficulty. Can make needs known. Call cuevas within reach.
[2024-05-11] MEDS: CARDIZEM 10 MG IV (05:39)
[2024-05-11] MEDS: PACERONE 400 MG PO ×3 (05:41→23:23)
--- NOTE | 2024-05-11 06:22 | PTCARENOTE ---
Pt noted to be flipping between SVT up to 170 and Afib in the 140s. Pt remains on Cardizem at 15mg/hr. BP stable. Pt asymptomatic. Betty Marrufo NP notified. One time dose of IV Cardizem administered per order and 0800 dose of Amiodarone
administered early as instructed. HR now back to 90s-120s in Afib. Pt with no complaints at this time.
[2024-05-11] MEDS: CARDIZEM 125 IV ×3 (07:10→23:23)
--- NOTE | 2024-05-11 09:05 | CM ---
Reviewed chart. Met with and Mrs. Pillai to review discharge plans. Spouse was my certified court/medical interpreter. Prior to admission she resides with her spouse and two sons in a two story home with one step to enter. She has a full flight of steps to get to
bedroom/full bathroom. She has a powder room on the first floor. Prior to admission he was independent with ambulation and adls. She does not have any DME in the home. She has a prescription plan and uses [facility]. Medical work-up in
progress. The discharge plan is to return home with her spouse and sons when medically stable.
--- NOTE | 2024-05-11 09:32 | W.PN.HOSP.TC ---
Addendum entered and electronically signed by Bernardino Perry MD 05/11/24 18:09:
Add on to diagnosis list:
JAY - improved
Original Note:
Today's Communication/Plan
-
await further cardio input
monitor T curve
check UA
small dose lasix
wean off o2
Assessment / Plan
Assessment / Plan
1. Paroxysmal atrial fibrillation with rapid ventricular rate
History of fibrillation in August 12
-Patient presented for palpitations/chest discomfort
-Uncontrolled A-fib at this point despite being on max dose of IV diltiazem drip.
-Amiodarone oral loading started yesterday as well
-Echocardiogram showing preserved ejection fraction, mod to sev mitral regurgitation with dilated LA. PAP of 44mm of hg
-Cardiology considering for patient to be cardioverted
2. Troponin elevation
-Nonischemic myocardial injury due to A-fib related
-Echocardiogram not showing any segmental wall motion defect
3. Fever episode
-CT abdomen pelvis did not show any infectious pathology
-COVID/flu negative
-check UA
-if any repeat episodes and will need to start abx
4. Essential hypertension
-On nighttime olmesartan, continue
-Nifedipine/labetalol on hold
5. Acute hypoxic respiratory insufficiency
Minimal pleural effusion
-Likely component of pulmonary congestion with atrial fibrillation
-Trial of small dose diuretics
DVT PPX - xarelto
Full code
Care plan discussed with cardiology
Discussed with patient spouse at bedside
Total time spent : 52 mins
I personally saw and examined the patient.
I have reviewed all diagnostic interpretations and treatment plans as written.
Time includes patient management by me, time spent at the patients bedside, time to review lab and imaging results, discussing patient care, documentation in the medical record, and time spent with the family or caregiver and discussing care plan
with RN/Consultants.
Anticipated Discharge: Within 24 hours
Subjective/Interval History
-
Date of Service: May 11, 2024
Patient continues to remain tachycardic and having palpitation
Having some diaphoresis/feeling of warmth
Objective Data
-
Labs:
Laboratory Results
05/11/24
09:16
Sodium Pending
Potassium Pending
Chloride Pending
Carbon Dioxide Pending
BUN Pending
Creatinine Pending
Glucose Pending
Calcium Pending
Vital Signs:
Vital Signs
Temp Pulse Resp BP Pulse Ox
98.2 F 128 18 128/96 99
05/11/24 07:30 05/11/24 08:00 05/11/24 07:30 05/11/24 07:28 05/11/24 07:30
Review of Systems
-
Respiratory: Reports No Symptoms
Cardiac: Reports No Symptoms
Abdomen/GI: Reports No Symptoms
Physical Exam
-
General: No Apparent Distress and Comfortable
HEENT: Oxygen
Respiratory: Clear to Auscultation
Cardiac: S1/S2, Irregular Rhythm and Tachycardic; Negative Murmur or Rub
GI: Soft, Nontender and Nondistended
Musculoskeletal: No Edema
Neuro: Awake, Alert, Oriented, No Motor Deficits and Nonfocal/Grossly Intact
Psych: Calm
[2024-05-11] MEDS: LASIX 20 MG IV (09:52)
[2024-05-11 10:01] LABS: Blood Urea Nitrogen 12 mg/dl (7-17); Calcium 8.7 mg/dl (8.4-10.2); Carbon Dioxide 24 mmol/L (22-30); Chloride 106 mmol/L (98-107); Estimated Creatinine Clearance 106 ml/min; Glucose 123 mg/dl (70-99); Potassium 3.9 mmol/L (3.5-5.1); Sodium 139 mmol/L (135-145); eGFR > 60.00
--- NOTE | 2024-05-11 10:21 | PTCARENOTE ---
Rec'd pt at handoff. AOX3 and pleasant. Spouse at bedside translating. Tele- afib. 110-150s. Cardizem gtt infusing at 15 ml/hr. Pt complains of some SOB. Orlando GILLESPIE aware and x1 IV lasix ordered and administered. Call faith w/in reach.
[2024-05-11 11:02] LABS: Urine Albumin Negative (Neg - Trace); Urine Bilirubin Negative (Negative); Urine Character Slightly Cloudy (Clear); Urine Color Yellow; Urine Glucose Negative (Negative); Urine Ketone Negative (Negative); Urine Leukocyte Trace (Negative); Urine Nitrite Negative (Negative); Urine Occult Blood Negative (Negative); Urine Specific Gravity 1.015 (<1.030); Urine Urobilinogen Negative (Neg - 1+)
[2024-05-11 11:14] LABS: Urine Bacteria Few (Negative); Urine Red Blood Cell 0-2 /HPF (0-2)
--- NOTE | 2024-05-11 13:35 | W.PN.CARDCBS ---
Addendum entered and electronically signed by Howard Menendez MD 05/11/24 15:23:
I saw and examined the patient.
The Webmethods Consultant's note was reviewed and I agree with the note.
Comment: Briefly, 58-year-old woman past medical history of persistent atrial fibrillation with prior PVI and recovered cardiomyopathy who presents with atrial fibrillation with rapid ventricular response
Heart rates have been difficult to control despite diltiazem drip
Amiodarone added yesterday
Start metoprolol today
Tentative plan for direct-current cardioversion in a.m. to restore sinus rhythm
Continue Xarelto for cardioembolic prophylaxis
Original Note:
Today's Communication / Plan
-
CV in AM. NPO after midnight
continue IV cardizem gtt, amiodarone loading
add toprol 25mg daily
OP EP eval
may need OP VICTOR MANUEL to further eval degree of MR
CVE in AM. consider OP ischemic eval
Impression / Plan
-
PCP: Chepe Ricks
Primary brooch maker novelty: Saeed Arguello
Primary EP: Marino Paredes
Impression:
A-fib with rapid ventricular response
Chest pain
Elevated troponin, suspected nonischemic myocardial injury
History of recovered CM
Hypertension
Obstructive sleep apnea
Mitral regurgitation
Aortic insufficiency
Previous cardiovascular testing:
Echo 10/13/2023: EF 65 to 70%, stage II diastolic dysfunction, mild septal hypertrophy, mild biatrial enlargement, mild mitral stenosis, moderate MR, mild to moderate AI
Echo 09/11 in [place]: EF 35 to 40% when in A-fib with RVR (do not have actual report)
Echo 05/10/2024: EF 55 to 60%, mild concentric LVH, moderate to severe MR, mild AR, trace TR, PAP 44 mmHg, enlarged RV size, normal RV function
Plan:
Patient with paroxysmal A-fib status post PVI 07/2023 with recurrence of A-fib approximately 1 month post ablation resulting in tachycardia induced cardiomyopathy with initiation of amiodarone with cardioversion presented with chest pain and
palpitations and noted to be in atrial fibrillation
-Currently on Cardizem gtt. at 15 and was started on amiodarone 400 mg 3 times daily (hesitant for 1C agents given history of LV dysfunction, and has not had prior ischemic workup). remains in afib with suboptimal HR control on review of tele
overnight. will add toprol 25mg daily as relatively hypotensive
-Had isolated temp of 102.8 overnight, however has been afebrile since. Infectious work up unrevealing thus far. Will monitor overnight and if remains afebrile, will plan for cardioversion in a.m. She denies missed doses of Eliquis.
-consider for OP VICTOR MANUEL to evaluate further degree of mitral regurgitation (mod to severe by TTE). may require CT surgical eval for intervention
-EP evaluation to consider repeat ablation
-if [facility] antiarrhythmic tx needed, could also consider tikosyn or sotalol
-Repeat echo 05/10/2024 with results as above, EF preserved, moderate to severe MR
-trops flat in 0.1 range. no present CP. suspected non ischemic myocardial injury secondary to afib with RVR. check CVE in AM. would consider OP ischemic evaluation.
-OP Olmesartan 40 mg daily, nifedipine 60 mg daily, labetalol 300 mg twice daily currently on hold
-d/w nursing
PREADMIT DATA:
58-year-old female with history of paroxysmal atrial fibrillation status post PVI 07/2023 Dr Paredes (on Xarelto), recurrent A-fib 1 month post ablation status post initiation of short-term amiodarone and subsequent cardioversion, tachycardia induced
cardiomyopathy 08/2023, hypertension, obstructive sleep apnea (on CPAP), mitral regurgitation, aortic insufficiency, presents for evaluation due to 4-day history of intermittent chest pain with palpitations and heart rates up to 200 bpm and home
setting, found to be in A-fib
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
Subjective
Date of Service: May 11, 2024
no issues
Objective
Labs:
05/10/24 02:19
05/11/24 09:16
Labs
Hgb 13.5 g/dL (12.0-16.0) 05/10/24 02:19
Hct 39.5 % (37.0-47.0) 05/10/24 02:19
Plt Count 309 10^3/uL (130-400) 05/10/24 02:19
PT 25.0 Sec (11.4-14.6) H 05/10/24 02:19
INR 2.26 05/10/24 02:19
APTT 43.0 Sec (23.4-35.0) H 05/10/24 02:19
Sodium 139 mmol/L (135-145) 05/11/24 09:16
Potassium 3.9 mmol/L (3.5-5.1) 05/11/24 09:16
BUN 12 mg/dl (7-17) 05/11/24 09:16
Creatinine 0.7 mg/dL (0.6-1.0) 05/11/24 09:16
Glucose 123 mg/dl (70-99) H 05/11/24 09:16
Troponins
05/10/24 05/10/24 05/10/24
02:19 06:45 09:46
Troponin I 0.133 H* 0.115 H* 0.124 H*
05/10/24 05/10/24 05/10/24
12:42 14:14 14:51
Troponin I Cancelled Cancelled 0.142 H*
05/10/24
21:39
Troponin I 0.115 H*
Vital Signs and I&O:
Vital Signs
Temp Pulse Resp BP Pulse Ox
98.6 F 127 16 114/83 95
05/11/24 11:57 05/11/24 11:00 05/11/24 11:57 05/11/24 09:54 05/11/24 11:57
Vital Signs
Temp Pulse Resp BP Pulse Ox
98.6 F 127 16 114/83 95
05/11/24 11:57 05/11/24 11:00 05/11/24 11:57 05/11/24 09:54 05/11/24 11:57
Physical Exam
Physical Exam
GEN: No distress, awake, alert, oriented x3
HEENT: supple, anicteric, mmm, eomi
LUNGS: CTA B/L, no wheezes/rales
CV: Irreg, S1/S2, 1/6 murmur
ABD: soft, BS+, NT/ND
EXT: No cyanosis, clubbing, edema
NEURO: Gross non-focal
SKIN: Warm, pink, dry. No rash
[2024-05-11] MEDS: TOPROL XL 25 MG PO (14:22)
--- NOTE | 2024-05-11 15:29 | PN.CDI ---
CDI
- -
CDI:
Physician Documentation Request
Admit Date: 05/10/24 06:33
Dear Doctor Orlando,
Please review the following and provide your response in the progress notes.
Clinical Indicators:
Pt admitted with Afib with RVR
Laboratory Tests
05/10/24 05/11/24
02:19 09:16
Creatinine 1.2 H 0.7
Clarify which of the following accurately represents the patient's renal status:
Acute kidney injury - see criteria
Other
Criteria for JAY*
1 Increase in serum creatinine by > or = to 0.3 mg/dL (> or = to 26.5 micromol/L) within 48 hours, OR
2 Increase in serum creatinine to > or = to 1.5 times baseline, which is known or presumed to have occurred within 7 days, OR
3 Urine volume < 0.5 nL/kg/hour for six hours
Use of terms such as suspected, likely, concern for, or probable (associated with a specific diagnosis that is being evaluated, monitored, or treated as if it exists) are acceptable and can be coded in the inpatient setting, when documented at the
time of discharge.
Thank you,
Yary Causey RN, BSN
CDI Specialist
[place] [employer]
Please use your independent medical judgment in providing your response.
*Source: Kidney Disease: Improving Global Outcomes (KDIGO) 2012
[2024-05-11] MEDS: XARELTO 20 MG PO (17:34)
[2024-05-11] MEDS: TYLENOL 650 MG PO (20:05)
--- NOTE | 2024-05-11 20:57 | PTCARENOTE ---
Pt remains in Afib with HR 90s-120s. No complaints of CP or SOB. Cardizem gtt currently infusing at 15mg/hr. Plan of care discussed using dry pan charger and pt verbalizes understanding of remaining NPO after midnight for Cardioversion tomorrow.
Ambulating independently in room without difficulty. Can make needs known. Call cuevas within reach.
[2024-05-11] MEDS: BENICAR 40 MG PO (23:23)
[2024-05-12] VITALS (7 sets, daily range): BP systolic 107–144; BP diastolic 75–98; BMI 32.7
--- NOTE | 2024-05-12 02:07 | DOWNTIME ---
There was a [employer] Client Footwear Sales Leader Downtime on 05/12/2024 from 0100 to 05/12/2023 at 0205 . Downtime documentation of patient's care, including medication administrations, has been reconciled in the electronic record per guidelines. Refer to the
patient's paper chart under the miscellaneous tab to see printed paper medication records and downtime forms.
[2024-05-12 06:32] LABS: Blood Urea Nitrogen 12 mg/dl (7-17); Calcium 8.8 mg/dl (8.4-10.2); Carbon Dioxide 22 mmol/L (22-30); Chloride 105 mmol/L (98-107); Estimated Creatinine Clearance 122 ml/min; Glucose 112 mg/dl (70-99); HDL Cholesterol 31 mg/dl; LDL Cholesterol, Calculated 95 mg/dl; Potassium 3.7 mmol/L (3.5-5.1); Sodium 139 mmol/L (135-145); Total Cholesterol 146 mg/dl (50-199); Triglyceride 103 mg/dl (10-149); Very Low Density Lipoprotein 20 mg/dl (0-30); eGFR > 60.00
[2024-05-12] MEDS: CARDIZEM 125 IV (07:50)
[2024-05-12] MEDS: TOPROL XL 25 MG PO (07:51)
[2024-05-12] MEDS: PACERONE 400 MG PO (07:51)
--- NOTE | 2024-05-12 08:19 | PTCARENOTE ---
Patient sent to senior label specialist on a stretcher
--- NOTE | 2024-05-12 10:24 | W.PN.CARDCBS ---
Addendum entered and electronically signed by Howard Menendez MD 05/12/24 17:49:
I saw and examined the patient on morning rounds.
The Corduroy Cutter Operator's note was reviewed and I agree with the note.
Comment: Briefly, 58-year-old woman past medical history of persistent atrial fibrillation with prior PVI and recovered cardiomyopathy who presents in atrial fibrillation with rapid ventricular response
Underwent DCCV this a.m. to restore sinus rhythm
Plan to discharge on amiodarone and metoprolol
Continue Xarelto for cardioembolic prophylaxis
Plan for re-evaluated by EP as an outpatient, follow up has been arranged
Original Note:
Today's Communication / Plan
-
s/p successful CV
toprol 25mg daily
amiodarone 200mg BID for 1 month then decrease to 200mg daily
xarelto 20mg QPM
olmesartan 40mg HS
OP nifedipine and labetalol stopped for now.
OP EP eval
consider for OP ischemic evaluation and VICTOR MANUEL
plan for DC later today
Impression / Plan
-
PCP: Chepe Ricks
Primary soda drier feeder: Saeed Arguello
Primary EP: Marino Paredes
Impression:
A-fib with rapid ventricular response
Chest pain
Elevated troponin, suspected nonischemic myocardial injury
History of recovered CM
Hypertension
Obstructive sleep apnea
Mitral regurgitation
Aortic insufficiency
Previous cardiovascular testing:
Echo 10/13/2023: EF 65 to 70%, stage II diastolic dysfunction, mild septal hypertrophy, mild biatrial enlargement, mild mitral stenosis, moderate MR, mild to moderate AI
Echo 09/11 in [place]: EF 35 to 40% when in A-fib with RVR (do not have actual report)
Echo 05/10/2024: EF 55 to 60%, mild concentric LVH, moderate to severe MR, mild AR, trace TR, PAP 44 mmHg, enlarged RV size, normal RV function
Plan:
-Status post successful cardioversion 05/12/2024. diet ordered
-Stop IV Cardizem. Continue Toprol 25 mg daily
-Will decrease amiodarone to 200 mg twice daily for 1 month then decrease further to 200 mg daily
-Continue xarelto
-Repeat echo 05/10/2024 with results as above, EF preserved, moderate to severe MR. consider for OP VICTOR MANUEL in SR to evaluate further degree of mitral regurgitation (mod to severe by TTE).
-EP evaluation to consider repeat ablation
-if intermodal owner operator truck driver antiarrhythmic tx needed, could also consider tikosyn or sotalol
-trops flat in 0.1 range. no present CP. suspected non ischemic myocardial injury secondary to afib with RVR. LDL 95. would consider OP ischemic evaluation.
-OP nifedipine 60 mg daily, labetalol 300 mg twice daily remain on hold. continue OP olmesartan
-OP cardiac follow up arranged
-plan for DC later today
-d/w nursing. d/w patient and at bedside. d/w hospitalist
PREADMIT DATA:
58-year-old female with history of paroxysmal atrial fibrillation status post PVI 07/2023 Dr Paredes (on Xarelto), recurrent A-fib 1 month post ablation status post initiation of short-term amiodarone and subsequent cardioversion, tachycardia induced
cardiomyopathy 08/2023, hypertension, obstructive sleep apnea (on CPAP), mitral regurgitation, aortic insufficiency, presents for evaluation due to 4-day history of intermittent chest pain with palpitations and heart rates up to 200 bpm and home
setting, found to be in A-fib
Progress Note - Desktop Publishing Operator
Subjective
Date of Service: May 12, 2024
feeling much better post CV
Objective
Labs:
05/10/24 02:19
05/12/24 05:08
Labs
Hgb 13.5 g/dL (12.0-16.0) 05/10/24 02:19
Hct 39.5 % (37.0-47.0) 05/10/24 02:19
Plt Count 309 10^3/uL (130-400) 05/10/24 02:19
PT 25.0 Sec (11.4-14.6) H 05/10/24 02:19
INR 2.26 05/10/24 02:19
APTT 43.0 Sec (23.4-35.0) H 05/10/24 02:19
Sodium 139 mmol/L (135-145) 05/12/24 05:08
Potassium 3.7 mmol/L (3.5-5.1) 05/12/24 05:08
BUN 12 mg/dl (7-17) 05/12/24 05:08
Creatinine 0.6 mg/dL (0.6-1.0) 05/12/24 05:08
Glucose 112 mg/dl (70-99) H 05/12/24 05:08
Troponins
05/10/24 05/10/24 05/10/24
02:19 06:45 09:46
Troponin I 0.133 H* 0.115 H* 0.124 H*
05/10/24 05/10/24 05/10/24
12:42 14:14 14:51
Troponin I Cancelled Cancelled 0.142 H*
05/10/24
21:39
Troponin I 0.115 H*
Vital Signs and I&O:
Vital Signs
Temp Pulse Resp BP Pulse Ox
99.7 F 157 20 116/97 97
05/12/24 07:18 05/12/24 07:20 05/12/24 07:18 05/12/24 07:20 05/12/24 07:18
Vital Signs
Temp Pulse Resp BP Pulse Ox
99.7 F 157 20 116/97 97
05/12/24 07:18 05/12/24 07:20 05/12/24 07:18 05/12/24 07:20 05/12/24 07:18
Intake & Output
05/10/24 05/11/24 05/12/24 05/13/24
07:59 07:59 07:59 07:59
Intake Total 580 / 580
Balance 580 / 580
Physical Exam
Physical Exam
GEN: No distress, awake, alert, oriented x3
HEENT: supple, anicteric, mmm, eomi
LUNGS: CTA B/L, no wheezes/rales
CV: Reg, S1/S2, 1/6 murmur
ABD: soft, BS+, NT/ND
EXT: No cyanosis, clubbing, edema
NEURO: Gross non-focal
SKIN: Warm, pink, dry. No rash
--- NOTE | 2024-05-12 10:29 | PTCARENOTE ---
Patient received from the maintenance shop laborer in NSR with occasional PAC's. Iv Cardizem discontinued. Patient states she is feeling much better, VSS, at bedside
--- NOTE | 2024-05-12 12:14 | PTCARENOTE ---
Patient feeling better, sitting on side of bed eating lunch. NSR HR 68, at bedside to assist with translating
--- NOTE | 2024-05-12 13:21 | W.PN.HOSP.TC ---
Today's Communication/Plan
-
d/c home
Assessment / Plan
Assessment / Plan
1. Paroxysmal atrial fibrillation with rapid ventricular rate
History of fibrillation in August 12
-Patient presented for palpitations/chest discomfort
-Uncontrolled A-fib at this point despite being on max dose of IV diltiazem drip.
-Echocardiogram showing preserved ejection fraction, mod to sev mitral regurgitation with dilated LA. PAP of 44mm of hg
-05/12 s/p cardioversion and in NSR now
-Patient to be discharged on amiodarone loading dose and Toprol-XL
2. Troponin elevation
-Nonischemic myocardial injury due to A-fib related
-Echocardiogram not showing any segmental wall motion defect
3. Fever episode
-CT abdomen pelvis did not show any infectious pathology
-COVID/flu negative
-UA neg
-if any repeat episodes and will need to start abx
4. Essential hypertension
-On nighttime olmesartan, continue
-Nifedipine/labetalol to be discontinued at discharge.
5. Acute hypoxic respiratory insufficiency - resolved
Minimal pleural effusion
-Likely component of pulmonary congestion with atrial fibrillation
-Trial of small dose diuretics
DVT PPX - xarelto
Full code
More than 30 minutes spent in discharge including
Final examination of the patient
Summarizing hospital stay
Instructions for continuing care to all relevant caregivers
Preparation of discharge records, prescriptions, and referral forms
Total time spent (in minutes): 38 mins
Anticipated Discharge: Today
Subjective/Interval History
-
Date of Service: May 12, 2024
Patient converted to sinus rhythm post cardioversion
No shortness of breath/chest discomfort/palpitation
No reported other issues
Objective Data
-
Labs:
Laboratory Results
05/12/24
05:08
Sodium 139
Potassium 3.7
Chloride 105
Carbon Dioxide 22
BUN 12
Creatinine 0.6
Glucose 112 H
Calcium 8.8
Vital Signs:
Vital Signs
Temp Pulse Resp BP Pulse Ox
98.9 F 65 16 144/76 98
05/12/24 10:32 05/12/24 11:00 05/12/24 10:32 05/12/24 10:52 05/12/24 10:32
I&O
05/11/24 05/12/24 05/13/24
06:59 06:59 06:59
Intake Total 580 / 580
Balance 580 / 580
Review of Systems
-
Respiratory: Reports No Symptoms
Cardiac: Reports No Symptoms
Abdomen/GI: Reports No Symptoms
Physical Exam
-
General: No Apparent Distress and Comfortable
HEENT: Oxygen
Respiratory: Clear to Auscultation
Cardiac: Regular Rhythm and S1/S2; Negative Murmur or Rub
GI: Soft, Nontender and Nondistended
Musculoskeletal: No Edema
Neuro: Awake, Alert, Oriented, No Motor Deficits and Nonfocal/Grossly Intact
Psych: Calm
--- NOTE | 2024-05-12 13:43 | CM ---
Reviewed chart. Met with and Mrs. Pillai to review discharge plans. She states she is feeling much better and hoping to go home soon. Prior to admission she resides with her spouse and two sons in a two story home with one step to enter. She
has a full flight of steps to get to bedroom/full bathroom. She has a powder room on the first floor. Prior to admission she was independent with ambulation and adls. She does not have any DME in the home. She has a prescription plan and uses [facility]. Medical work-up in progress. The discharge plan is to return home with her pouse and sons when medically stable.
--- NOTE | 2024-05-12 13:58 | W.DCSUMMARY ---
Discharge Summary
Discharge Data
Date of Admission: 05/10/24
Date of Discharge: 05/12/24
-
Pending Results: No
Hospital Course
Discharging Physician : Dr Bernardino Perry
Disposition : Home
Primary care physician : Dr Chepe Ricks
Principal Discharge diagnosis :
Paroxysmal atrial fibrillation with rapid ventricular rate
Fever episode
Troponin elevation
Acute hypoxic respite insufficiency
Chronic Discharge diagnosis :
Essential hypertension
Hospital Course :
Patient is a 58-year-old female with no mentioned past medical history came to ER with new onset of palpitation and some chest discomfort. Patient have history of paroxysmal A-fib and have undergone evaluation in August 12. Patient developed
recurrence of A-fib after that while traveling [place] and requiring 3 attempts of cardioversion with third 1 being successful. Patient was monitoring her rhythm through [employer] watch and was in sinus rhythm till 4 days ago before this
hospitalization. In ER patient was started on Cardizem drip for rate control, which was proven to be difficult as despite maximal Cardizem patient was tachycardic. Cardiology was involved in care and started on amiodarone for rhythm control.
Patient underwent a successful cardioversion following day after which patient was discharged on oral loading dose of amiodarone and Toprol for rate control.
Of note patient was also noted to have episode of fever although septic workup was negative. Patient did not require any course of antibiotic.
Important imaging findings :
None
Procedure findings :
None
Discharge Plan
-
Patient Disposition: Home (Routine Discharge)
Discharge Diagnosis/Procedures: Afib/RVR,
Condition: Fair
Diet: Low Cholesterol and 2 Gram Sodium
Activity: As tolerated
Driving Restrictions: No driving for 24 hours
Activity Restrictions/Additional Instructions:
continue amiodarone 200mg twice daily for 30 days then decrease to 200mg daily!
Referrals:
Chepe Ricks MD [Family Provider] - in one week
Neema Ng CRNP [Specified Professional Personl] - 05/28/24 3:00 pm (You have an outpatient cardiology/EP follow-up appointment [facility] [address] Paredes's nurse practitioner, Neema. Please call with questions)
Additional Discharge Medication Instructions: STOP labetaol/Nifedipine
Prescriptions:
New
amiodarone 200 mg Tablet
See Rx Instructions .ROUTE .COMPLEX Qty: 60 0RF
Rx Instructions:
Take 1 tablet twice daily for 4 Weeks THEN
Take 1 tablet daily for maintenance
metoprolol succinate 25 mg Tablet Extended Release 24 Hr
25 mg PO DAILY Qty: 30 2RF
Continued
olmesartan 40 mg Tablet
40 mg PO DAILY
Xarelto 20 mg Tablet
20 mg PO QPM
Discontinued
labetalol 300 mg Tablet
300 mg PO BID
nifedipine [Nifediac CC] 60 mg Tablet Extended Release
60 mg PO DAILYPRN PRN (Reason: high blood pressure)
Discharge Orders:
Discharge Patient (As Directed); Ordered 05/12/24
Ordered By: Bernardino Perry
Care Plan Goals
Care Plan Goals:
Problem: Readiness for enhanced knowledge related to diagnosis and treatment plan
Goal: Understand your diagnosis and treatment plan needs, including medications if applicable.
Instructions: Know your diagnosis, underlying causes and treatment plan options, including medications if applicable. Consult with your health care team to learn about your diagnosis and treatment plan, including medications if applicable.
Discharge Date and Time
Print Language: GREEN[place]
--- NOTE | 2024-05-12 14:14 | PTCARENOTE ---
Patient discharged to home with spouse. Instructions reviewed with patient and spouse, they verbalized understanding. IV and telemetry removed, patient escorted to main lobby in a wheelchair
== END 2024-05-12 14:17 | disposition home or self-care (01) | DRG 309 ==
LOC: IVU 06:33
PROVIDERS: Internal Medicine; ADMITTING PHYSICIAN Internal Medicine; ATTENDING PHYSICIAN Hospitalist; EMERGENCY PHYSICIAN Student in an Organized Health Care Education/Training Program; FAMILY PHYSICIAN Internal Medicine; OTHER PHYSICIAN Internal Medicine Cardiovascular Disease
PROC: 5A2204Z Restoration of Cardiac Rhythm, Single (ICD-10-PCS; 2024-05-12)
DX: I48.0 Paroxysmal atrial fibrillation (principal); I5A Non-ischemic myocardial injury (non-traumatic); N17.9 Acute kidney failure, unspecified; J90 Pleural effusion, not elsewhere classified; R79.89 Other specified abnormal findings of blood chemistry; I10 Essential (primary) hypertension; R09.02 Hypoxemia; R06.89 Other abnormalities of breathing; Z79.01 Long term (current) use of anticoagulants; E78.00 Pure hypercholesterolemia, unspecified; I08.0 Rheumatic disorders of both mitral and aortic valves; Z90.49 Acquired absence of other specified parts of digestive tract; K21.9 Gastro-esophageal reflux disease without esophagitis; G47.33 Obstructive sleep apnea (adult) (pediatric); Z82.49 Family history of ischemic heart disease and other diseases of the circulatory system; Z79.899 Other long term (current) drug therapy; Z11.52 Encounter for screening for COVID-19
CPT/HCPCS: 71046; 71275; 74175; 80048; 80053; 80061; 81003; 81015; 83735; 84443; 84484; 85025; 85610; 85730; 87502; 87811; 92960; 93005; 93306; 96374; 99285; Q9967

== ENCOUNTER 2024-07-15 10:33 | Day surgery (SDC) | payer BC, SELFPAY ==
[2024-07-06 10:22] VITALS: BMI 34.4
[2024-07-06 11:24] LABS: % Basophils 0.8 % (0-2); % Immature Granulocytes 0.2 % (0-0.5); % Lymphocytes 35.1 % (20.5-51.1); % Monocytes 9.1 % (1.7-9.3); % Neutrophils 53.8 % (42.2-75.2); Absolute Eosinophils 0.1 10^3/uL (0-0.7); Absolute Lymphocytes 1.7 10^3/uL (1.2-3.4); Absolute Monocytes 0.4 10^3/uL (0.1-0.6); Absolute Neutrophils 2.6 10^3/uL (1.4-6.5); Hematocrit 41.7 % (37.0-47.0); Hemoglobin 14.1 g/dL (12.0-16.0); Mean Corp Hgb Conc. 33.8 g/dL (33.0-37.0); Mean Corpuscular Hgb 30.7 pg (27.0-31.0); Mean Corpuscular Volume 90.7 fL (81.0-99.0); Mean Platelet Volume 9.6 fL (7.4-10.4); Nucleated Red Blood Cells % 0 %; Platelet Count 276 10^3/uL (130-400); Red Cell Dist. Width 12.8 % (11.5-14.5); White Blood Cell Count 4.8 10^3/uL (4.8-10.8)
[2024-07-06 11:35] LABS: INR 1.18; PT 15.3 Sec (11.4-14.6)
[2024-07-06 12:13] LABS: ALT (SGPT) 19 U/L (0-35); AST (SGOT) 26 U/L (14-36); Albumin 5.1 g/dl (3.5-5.0); Alkaline Phosphatase 61 U/L (38-126); Blood Urea Nitrogen 19 mg/dl (7-17); Carbon Dioxide 23 mmol/L (22-30); Chloride 104 mmol/L (98-107); Estimated Creatinine Clearance 104 ml/min; Glucose 96 mg/dl (70-99); Magnesium 2.2 mg/dl (1.6-2.3); Potassium 4.2 mmol/L (3.5-5.1); Sodium 140 mmol/L (135-145); Total Bilirubin 0.6 mg/dl (0.2-1.3); Total Protein 7.6 g/dl (6.3-8.2); eGFR > 60.00
[2024-07-06 17:47] LABS: Free T4 1.15 ng/dl (0.78-2.19)
[2024-07-06 18:01] LABS: TSH 1.97 uIU/ml (0.47-4.68)
[2024-07-15] VITALS (13 sets, daily range): BP systolic 124–156; BP diastolic 69–83; BMI 32.5
[2024-07-15 14:17] LABS: ACT-LR - POC 265 Seconds (116-155)
[2024-07-15 14:39] LABS: ACT-LR - POC 271 Seconds (116-155)
--- NOTE | 2024-07-15 14:51 | ITS.CL.ABL ---
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
Ablation
Procedure Report:
ELECTROPHYSIOLOGY ABLATION STUDY
DATE:: July 15, 2024�����������������������������REFERRING: Dr. Ty Varner
INDICATION: Paroxysmal supraventricular tachycardia in the form of atrial fibrillation.��Prior ablation with 28 mm cryoballoon in July 2023
HISTORY: See H and P.��As above
ANTIARRHYTHMIC DRUG: Amiodarone
PRE-PROCEDURE VICTOR MANUEL: No intracardiac thrombus
PRESENTING RHYTHM: Sinus bradycardia
'TIME-OUT':��called and confirmed.
SEDATION/ANESTHESIA:��provided via the anesthesia department using general anesthesia (LMA).
INTRAVENOUS/ARTERIAL ACCESS:
Right femoral venous - 10 Fr,
Left femoral venous - 8 Fr, 6 Fr
Ultrasound guidance for bilateral femoral vein access was utilized by me to obtain access with demonstration of normal anatomy
CHADS-VASC Score:
HAS-Bled Score
PROCEDURE:
1.��A decapolar CS catheter was placed within the CS for mapping and pacing.��This was also used as the reference catheter for the 3-D map.
2. The intracardiac ultrasound catheter was positioned in the RA to identify the FO for targeting of transseptal puncture, assist��in identification of the pulmonary vein ostia, monitoring pre and post ablation pulmonary vein flow velocities,
monitoring for 'bubble' formation during RF application as a sign of thermal injury,��and to monitor for pericardial effusion during mapping and ablation procedure.���Left atrial size, LV ejection fraction, and pulmonary vein flows were monitored
pre and post ablation procedure. The other valves were inspected and found to be free of significant regurgitation or stenosis.
3.��Half of the calculated heparin bolus was administered prior to the first transeptal puncture.��Transseptal puncture was performed to diagnose RA and LA pressure so that safety of LA mapping and ablation could be further assessed, and to access
the left atrium and pulmonary veins for mapping and ablation.��This entailed advancing an 16.8 Bahamian sheath, dilator, RF wire and sheath with dilator into the superior vena cava and withdrawing both (monitoring intracardiac ultrasound, fluoroscopy
and tip pressure) with the tip oriented toward the atrial septum.��The fossa ovalis was engaged (indicated by sudden displacement of the sheath tip as well as tenting of the fossa seen on intracardiac ultrasound).��Left atrial access required a pass
with the [place]rough needle extended.��Left atrial catheter position was confirmed by pressure monitoring (RA mean pressure 8 mm Hg and LA mean presure 14 mm Hg), LA saturation (99%),��as well as fluoroscopy.��The sheath was advanced over the
dilator and positioned in the left atrium.��This procedure was repeated for the Agilis sheath.��The remainder of the calculated heparin bolus was administered and heparin was
infused to maintain ACT at 300 -350 seconds throughout the case.
4.��RA pacing was performed via the proximal decapolar poles and LA pacing was performed via the distal decapolr poles.
5. A quadrapolar catheter was first positioned at the His position for His Bundle recording which was tagged via the 3-D Navex sytem, and then passed to the RVA for RV pacing and recording.
6. The multipolar catheter and the Penta splint catheter were placed in each of the LIPV, LSPV, RSPV and the RIPV.��
7.��Next, a 3-D map was created using Navex.���A 3-D reconstructed CT image was compared to the 3-D Navex map to assist in anatomic interpretation, mapping and ablation.��The CT image and the NavX image were fused.
8. A total of 42 lesions were delivered. There was reconnection quite distally in the left superior pulmonary vein approximately 1 cm past the vania with a focal pulmonary vein signal and the posterior vania and the antrum had some recovery of
signal. The right superior right inferior and left inferior pulmonary veins were isolated at baseline. An olive and basket pose the left superior pulmonary vein was addressed at the distal vania under intracardiac ultrasound guidance and in
basket pose the posterior vania was addressed in the right inferior pulmonary vein. The roof posterior wall and floor of the left atrium were ablated and flower post rendering all 4 pulmonary veins and the posterior wall at roof posterior wall and
floor electrically isolated with entrance and exit block confirmed. Additional lesions in flower and basket pose were given to the roof just outside the lesser pulmonary and in the anterior aspect. After this was dressed EP study was again
performed with atrial extrastimuli and burst atrial pacing which demonstrated no other supraventricular tachyarrhythmia. As such she is not catheters removed to the right atrium.
9. An RF line was also placed at the IVC-TVA isthmus to interupt the potential typical atrial flutter circuit.��At the end of RF at this site, pacing from the lateral side of the line and the medial side of the line was performed to evaluate for
bidirectinal block.
TOTAL FLOURO TIME: 12.6 minutes 112 mGy
TOTAL RF DURATION: 0 minutes
REVERSAL OF HEPARIN: 35 mg of protamine, slow IV administration
COMPLICATIONS:
None
Intracardiac US shows no pericardial effusion post ablation.
SUMMARY:��
Complex left atrial mapping and ablation.
Reisolation of the left superior pulmonary vein as well as the posterior vania at the antrum of the right inferior pulmonary vein. Isolation of the LA roof posterior wall and floor in flower pose with the Penta splint catheter. No other
arrhythmia was noted.
RECOMMENDATIONS:
1. Ambulate in 4 hours
2. Resume anticoagulation
3.��Consider same-day discharge
4.��Discontinue amiodarone
Copy to: Ned Paredes
--- NOTE | 2024-07-15 16:52 | W.PN.UPDATE ---
Update Note
Progress Note Update
59 yo WF s/p PVI (same day). She denies cp, sob, phillip diet, voiding, b/l groins with F08 c/d/i no HT, EKG SB. She will resume Xarelto tonight at 9pm. She will continue metoprolol but stop Amiodarone. Activity restrictions reviewed. She will f/u
Jos in 1 mo. She is for d/c home after 730p if groins stable.
== END 2024-07-15 19:26 | disposition home or self-care (01) ==
LOC: CATH 10:33
PROVIDERS: ATTENDING PHYSICIAN Internal Medicine Cardiovascular Disease; FAMILY PHYSICIAN Internal Medicine; OTHER PHYSICIAN Internal Medicine Cardiovascular Disease
DX: I48.19 Other persistent atrial fibrillation (principal); R55 Syncope and collapse; I10 Essential (primary) hypertension; E66.9 Obesity, unspecified; G47.33 Obstructive sleep apnea (adult) (pediatric); Z79.01 Long term (current) use of anticoagulants; Z79.899 Other long term (current) drug therapy
CPT/HCPCS: C1732; C1894; C1730; C1769; C1759; C1892; 36415; 80053; 83735; 84439; 84443; 85025; 85347; 85610; 86850; 86900; 86901; 93005; 93656; 93657; C1733; C1766

== ENCOUNTER 2024-08-02 04:32 | Observation (INO) | payer BC, SELFPAY ==
[2024-08-01 23:18] VITALS: BMI 35.5
[2024-08-01 23:26] VITALS: BP 108/59
[2024-08-01 23:36] LABS: % Basophils 0.4 % (0-2); % Eosinophils 0.1 % (0-6); % Immature Granulocytes 0.3 % (0-0.5); % Lymphocytes 12.5 % (20.5-51.1); % Monocytes 8.1 % (1.7-9.3); % Neutrophils 78.6 % (42.2-75.2); Absolute Basophils 0.1 10^3/uL (0-0.2); Absolute Lymphocytes 1.7 10^3/uL (1.2-3.4); Absolute Monocytes 1.1 10^3/uL (0.1-0.6); Absolute Neutrophils 10.6 10^3/uL (1.4-6.5); Hematocrit 36.1 % (37.0-47.0); Hemoglobin 12.4 g/dL (12.0-16.0); Mean Corp Hgb Conc. 34.3 g/dL (33.0-37.0); Mean Corpuscular Volume 90.3 fL (81.0-99.0); Mean Platelet Volume 9.5 fL (7.4-10.4); Nucleated Red Blood Cells % 0 %; Platelet Count 310 10^3/uL (130-400); White Blood Cell Count 13.5 10^3/uL (4.8-10.8)
[2024-08-01] MEDS: NSS 500 IV (23:36)
--- NOTE | 2024-08-01 23:42 | ED.GENMED ---
History of Present Illness
General
Chief Complaint: Heart Rate Problem
Source: patient, spouse and previous hospital records (Hospitalization April of this year for similar complaint required electrical cardioversion. A-fib ablation July 15.)
Exam Limitations: none
Time Seen by Provider: 08/01/24 23:19
Nursing documentation reviewed up to this point in time: agreed with
History of Present Illness
History of Present Illness:
This is a 59-year-old woman with history of symptomatic paroxysmal atrial fibrillation. History of A-fib ablation in 2023 and then again most recently July 15. Hospitalized here May 10 with symptomatic rapid A-fib. Amiodarone reinitiated at
that time, required cardioversion during that hospitalization.
Then underwent A-fib ablation July 15. Amiodarone was discontinued but patient admits to not feeling well since that procedure, continued fatigue with onset of palpitations, chest pain, shortness of breath since July 26 or . Called her
payroll professional on July 27 and was recommended to resume amiodarone 200 mg p.m. which she has done so since July 27. Despite doing so she continues with palpitations, rapid heartbeat and overall not feeling well.
She denies change in weight, no leg pain or swelling.
does note that she had mild low-grade fever yesterday but has not had a cough. No congestion. No dysuria no urgency or hematuria.
She has been compliant with her nightly Xarelto.
Past History
Past History
ED Past Medical History: Arrthythmia (Paroxysmal atrial fibrillation) and HTN
ED Past Surgical History: Cardiac (A-fib ablation 2023 and again July 15, 2024)
Social History
Tobacco: Non-smoker
Alcohol: None
Drug: None
Personal:
Living: with family
Family History
Family History: Other
Phy Exam
Physical Exam
Physical Exam:
GENERAL: Alert , in no apparent distress
EYE: pupils equal and reactive
NECK: Supple, no significant adenopathy.
ENT: o/p clr, mmm.
CARDIAC: Irregularly irregular, tachycardic
LUNGS: Clear breath sounds bilaterally, no acute respiratory distress,
ABDOMEN: Soft, without focal tenderness, no r/g, no cvat
NEUROLOGICAL: Alert and oriented, no focal neuro deficits
SKIN: Warm and dry, skin intact.
MUSCULOSKELETAL: No edema, well perfused.
PSYCH: Normal and appropriate interaction.
Course
Orders/Labs/Results
Orders:
Orders
08/01/24 23:14
Electrocardiogram (*1) Urgent
Reason for Study: Chest Pain
Cardiac Monitoring- Treatment ONCE
EKG- Treatment ONCE
08/01/24 23:24
BNP [NT-proBNP] Urgent
Complete Blood Count/With Diff Urgent
Comprehensive Metabolic Panel Urgent
Troponin I Urgent
08/01/24 23:30
0.9% Sodium Chloride 500 ml [Nss] 500 ml IV BOLUS
08/01/24 23:42
Propofol [Diprivan] 20 ml .ROUTE .STK-MED
08/01/24 23:59
Electrocardiogram (*1) Urgent
Reason for Study: Atrial Fibrillation
Other Reason for Exam: post cardioversion
EKG- Treatment ONCE
08/02/24 00:48
CR Chest - 2 Views Urgent
Comment:
Reason For Exam: SOB, afib with RVR
08/02/24 01:56
Furosemide [Lasix] 20 mg IV NOW STA
Abnormal Lab Results
08/01/24
23:24
WBC 13.5 H 10^3/uL
(4.8-10.8)
RBC 4.00 L 10^6/uL
(4.20-5.40)
Hct 36.1 L %
(37.0-47.0)
Absolute Neuts (auto) 10.6 H 10^3/uL
(1.4-6.5)
Absolute Monos (auto) 1.1 H 10^3/uL
(0.1-0.6)
Neutrophils % 78.6 H %
(42.2-75.2)
Lymphocytes % 12.5 L %
(20.5-51.1)
Carbon Dioxide 21 L mmol/L
(22-30)
BUN 18 H mg/dl
(7-17)
Glucose 152 H mg/dl
(70-99)
Total Bilirubin 1.8 H mg/dl
(0.2-1.3)
ALT 40 H U/L
(0-35)
08/01/24 23:24
08/01/24 23:24
Vital Signs
Initial and Last Documented VS:
Initial Vital Signs
Temp Pulse Resp Pulse Ox
97.8 F 178 24 95
08/01/24 23:05 08/01/24 23:05 08/01/24 23:05 08/01/24 23:05
Last Documented Vital Signs
Temp Pulse Resp BP Pulse Ox
99.4 F 67 20 116/73 93
08/02/24 00:31 08/02/24 01:50 08/02/24 01:50 08/02/24 01:50 08/02/24 01:50
Procedures
Cardioversion
Indication:: Afib
Performed by:: myself
Synchronized?: Yes
Energy Used: 200 joules
Number of attempts: 1
Successful?: Yes
ASA Risk Score: Class II
Any reaction or bad outcome to prior sedation/anesthesia?: No history of a reaction
Sedation level to be attained: moderate
Chart and allergies reviewed: Yes
Patient reassessed prior to sedation: Yes
Time out completed at (validating right patient & procedure): 23:55
History of difficult intubation: No
Airway free of obstruction: Yes
Patient has a gag reflex: Yes
Patient is able to open mouth: Yes
Patient has no dentures: Yes
Patient has no loose teeth: Yes
Medication administered by Provider during Moderate Sedation: IV Propofol (mg)
Total dose administered: 90
Time drug administered: 23:57
Start Time: 23:57
Stop Time: 00:10
MDM/Problems Addressed
Differential Diagnosis Includes:
Patient presents with recurrent symptomatic atrial fibrillation with rapid ventricular response. Heart rate 170-180.
Blood pressure is somewhat soft with systolic of 108.
EKG shows atrial fibrillation with rapid ventricular response 175. Nonspecific ST-T wave abnormalities. No evidence of STEMI.
Due to mild hypotension, I am hesitant to initiate IV Cardizem as well as given IV dose of metoprolol for rate control. Thus recommend we move to urgent synchronized electrical cardioversion.
Patient and agreeable with plan.
*Radiology
Radiology exam reviewed: preliminary read by ED provider (Chest x-ray shows cardiomegaly, increased interstitial markings concerning for CHF.)
*Pulse Oximetry
Patient hypoxic: no
*EKG
Interpreted by ED Provider?: Yes
Interpretation: abnormal
Comparison EKG: changes noted (A-fib with rapid ventricular response new compared to previous)
Rate: tachycardiac
Rhythm: a-fib
Wayne: normal axis
Interval: normal QT interval
QRS Pattern: normal QRS
Ischemia: non-specific ST changes
*Technician Terminal And Repeater Interpretation
Rate: tachycardiac
Interpretation: abnormal
Rhythm: a-fib
*Critical Care Note
Total Time (30-74mins, 75-104mins- exclusive of procedures): 30
comment:
Critical care statement: A total of 30 minutes of critical care time was provided for this patient. This includes management of unstable vital signs, evaluation of the patient at bedside, reviewing the patient's pertinent medical records, discussion
with consultants, review of old EKGs and review of pertinent medical records. This time with separate from time utilized to perform the aforementioned documented procedures
Update Note
Update Note:
02:00
After cardioversion patient remains in normal sinus rhythm.
Blood pressure stable.
Labs show elevated BNP 6700. No old results to review.
According to our records patient has gained 5 kg since July 15.
Chest x-ray shows moderate cardiomegaly, mild increased interstitial markings concerning for CHF.
I suspect CHF related to persistent A-fib ongoing for at least the past week.
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
ED Attending Note
-
Portions of this chart may have been created with voice recognition software.� Occasional wrong word or��sound alike� substitutions may have occurred due to the inherent limitations of voice recognition software.
Discharge Plan
Departure
Patient Disposition: Admit
Date of Disposition: 08/02/24
Time of Disposition: 02:01
Admit to: Telemetry
Admit to doctor: Arianne
Presentation/result/management discussed w/ accepting MD/DO: Hospitalist
Condition: Fair
Discharge Problem:
Symptomatic PAF with RVR, Acute CHF
Prescriptions:
No Action
olmesartan 40 mg Tablet
40 mg PO DAILY
Xarelto 20 mg Tablet
20 mg PO QPM
metoprolol succinate 25 mg Tablet Extended Release 24 Hr
25 mg PO DAILY Qty: 30 2RF
nifedipine 30 mg Tablet Extended Release 24hr
30 mg PO QPM
cholecalciferol (vitamin D3) [Vitamin D3] 125 mcg (5,000 unit) Tablet
125 mcg PO Q48H
amiodarone 200 mg Tablet
200 mg PO DAILY
Referrals:
UNKNOWN - PT DOES,NOT KNOW [Family Provider] -
Interventions
Interventions:
*Risk Screen - Suicide Last Done: 08/01/24 23:05
*General Assessment Last Done: 08/01/24 23:20
*Neglect/Abuse Screening Last Done: 08/01/24 23:05
*ED- Fall Risk Assessment Last Done: 08/01/24 23:15
*ED COVID-19 Vaccine History Last Done: 08/01/24 23:16
ED- Cardiac Assessment Last Done: 08/01/24 23:38
ED- Pulmonary Assessment Last Done: 08/01/24 23:38
Discharge Date and Time
Print Language: URDU
[2024-08-01 23:52] LABS: ALT (SGPT) 40 U/L (0-35); AST (SGOT) 32 U/L (14-36); Albumin 4.1 g/dl (3.5-5.0); Alkaline Phosphatase 76 U/L (38-126); Blood Urea Nitrogen 18 mg/dl (7-17); Calcium 9.4 mg/dl (8.4-10.2); Carbon Dioxide 21 mmol/L (22-30); Chloride 106 mmol/L (98-107); Estimated Creatinine Clearance 104 ml/min; Glucose 152 mg/dl (70-99); Potassium 4.1 mmol/L (3.5-5.1); Sodium 137 mmol/L (135-145); Total Bilirubin 1.8 mg/dl (0.2-1.3); Total Protein 6.6 g/dl (6.3-8.2); eGFR > 60.00
[2024-08-01 23:54] VITALS: BP 108/59
[2024-08-01 23:55] VITALS: BP 126/78
[2024-08-01 23:59] LABS: NT-proBNP 6750 pg/ml; Troponin I < 0.012 ng/ml
[2024-08-02] VITALS (21 sets, daily range): BP systolic 98–152; BP diastolic 54–88; BMI 33.1
[2024-08-02] MEDS: LASIX 20 MG IV ×2 (03:53→07:25)
--- NOTE | 2024-08-02 04:02 | HPS.HSE ---
Family Physician
-
Family Physician: NOT KNOW UNKNOWN - PT DOES
Chief Complaint
-
Palpitations and shortness of breath
History of Present Illness
This Is a 59-year-old female with past medical history of atrial fibrillation status post cardioversion in April, ablation in June with discontinuation of amiodarone who presents to the emergency department with approximately 2 weeks of ongoing
palpitations fatigue and shortness of breath.
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 There was no improvement.
She continued to have dyspnea on exertion and shortness of breath and fatigue as well as palpitations.
She gained about 5 pounds since July 15.
On arrival in the emergency department she was tachycardic to 180 with atrial fibrillation. BP was soft and she underwent cardioversion. Currently blood pressure was 130/70 with a pulse of 69 normal sinus rhythm. Temp is 99.4.
Troponin was 0.012. BNP is elevated at 6750. She had white count 13.5, hemoglobin and platelets were normal. Electrolytes were normal. BUN/creatinine were normal.
Chest x-ray shows trace bilateral pleural effusion and mild interstitial pulmonary edema.
Medical History
Past Medical History
Past Medical History: Reports Arrhythmia (Paroxysmal atrial fibrillation), HTN, Hypercholesterolemia and Valvular Disease (Aortic valve insufficiency)
Past Surgical History: Reports Cholecystectomy
Social History
Tobacco: Non-smoker
Alcohol: Occasional
Drug: None
Personal:
Living: With Family
Family History
Family History: Not pertinent
Allergies / Home Medications
Allergies reflects when Allergies were last updated in [facility].
Home Medications with original date entered in [facility]
Allergy/Medication List:
Allergies
Allergy/AdvReac Type Severity Reaction Status Date / Time
No Known Allergies Allergy Verified 05/10/24 01:40
Home Medications
olmesartan 40 mg tablet 40 mg PO HS 05/21/23
rivaroxaban 20 mg tablet (Xarelto) 20 mg PO QPM 05/21/23
Labetalol 300 mg tablet 300 mg p.o. twice daily
Nifedipine 60 mg tablet 60 mg p.o. daily
Clonidine 0.1 mg tablet 0.1 mg p.o. as needed
Review of Systems
-
History Source: Patient
Constitutional: Reports Weight Gain
EENT: Reports No Symptoms
Respiratory: Reports Trouble Breathing
Cardiac: Reports Palpitations
Abdomen/GI: Reports No Symptoms
: Reports No Symptoms
Musculoskeletal: Reports No Symptoms
Skin: Reports No Symptoms
Neurological: Reports No Symptoms
Endocrine: Reports No Symptoms
Hematologic/Lymphatic: Reports No Symptoms
Psych: Reports No Symptoms
Physical Exam
Vital Signs
Vital Signs
Temp Pulse Resp BP Pulse Ox
99.4 F 69 20 129/75 93
08/02/24 00:31 08/02/24 03:53 08/02/24 01:50 08/02/24 03:53 08/02/24 01:50
Physical Exam
General: Well Developed, Well Nourished, No Apparent Distress and Comfortable
HEENT: NormoCephalic, Anicteric, Moist mucous membranes and Atraumatic
Respiratory: Clear and Crackles
Cardiac: S1/S2 and Regular Rhythm
Breast: Deferred by me
GI: Soft, Non Tender, Non Distended and Normal Bowel Sounds
Rectal: Deferred by Provider
Genito-urinary: Deferred by me
Musculoskeletal: No Clubbing, No Cyanosis and No Edema
Skin: Warm
Neuro: AO x 3 and Nonfocal/grossly intact
Hematologic/Lymphatic: No Lymphadenopathy
Psych: Calm
Laboratory Results
-
08/01/24 23:24
08/01/24 23:24
Laboratory Results
PT Cancelled 08/01/24 23:14
INR Cancelled 08/01/24 23:14
Total Bilirubin 1.8 mg/dl (0.2-1.3) H 08/01/24 23:24
AST 32 U/L (14-36) 08/01/24 23:24
ALT 40 U/L (0-35) H 08/01/24 23:24
Alkaline Phosphatase 76 U/L (38-126) 08/01/24 23:24
Troponin I < 0.012 ng/ml 08/01/24 23:24
Data Reviewed
-
Diagnostic Radiology: Image Personally Visualized and interpreted
Medical Tests (Nuc Med, Echo, EKG etc): Image Personally Visualized and interpreted
Lab Data: Labs Reviewed by me
Old Records: Reviewed
Impression/Plan
-
IMPRESSION:
59-year-old female with history of proximal atrial fibrillation status post cardioversion in April and ablation in July 15. She had her amiodarone discontinued. Since then the patient has been having palpitations and she has developed dyspnea
on exertion, shortness of breath fatigue and weight gain. Due to the constant palpitations amiodarone was restarted on July 27. She did continue to have palpitations and she came in with A-fib RVR and CHF. She is status post immediate
cardioversion in the emergency department. She is currently in normal sinus rhythm. Troponin is normal. Chest x-ray shows trace pleural effusion and mild increased pulmonary vascular markings. Labs are otherwise normal. Suspect CHF secondary to
uncontrolled atrial fibrillation. No acute ischemia on labs or ECG. Last ECHO in april with LV ejection fraction of 55-60% by visual assessment and mild concentric left ventricular hypertrophy.
PLAN:
1. CHF - Due to uncontrolled afib. She is not markedly overloaded but has signs of pulmonary edema.
- admit to telemetry
- lasix 20mg iv q 12 for now
- daily weights and i/os
- check tsh
- will hold off on repeat echo for now
- continue olmesartan with hold parameters
2. AFIB - s/p repeat cardioversion. Currently sinus rhythm
- continue amio 200mg daily, metop succ 25 daily
- rivaroxaban 20mg
- consult cardiology
Code status - full code
--- NOTE | 2024-08-02 06:58 | PTCARENOTE ---
Pt admitted to room 2249 with post CV. Pt AAOx3 VSS. Denies pain or any discomfort. Ambulates independently. Oriented to room, call cuevas in reach
[2024-08-02 07:19] LABS: Blood Urea Nitrogen 14 mg/dl (7-17); Calcium 8.7 mg/dl (8.4-10.2); Carbon Dioxide 25 mmol/L (22-30); Chloride 108 mmol/L (98-107); Estimated Creatinine Clearance 104 ml/min; Glucose 107 mg/dl (70-99); Magnesium 1.9 mg/dl (1.6-2.3); Phosphorus 3.1 mg/dl (2.5-4.5); Potassium 3.7 mmol/L (3.5-5.1); Sodium 141 mmol/L (135-145); eGFR > 60.00
[2024-08-02] MEDS: PACERONE 200 MG PO ×2 (07:24→19:39)
[2024-08-02] MEDS: BENICAR 40 MG PO (07:25)
[2024-08-02] MEDS: TOPROL XL 25 MG PO ×2 (07:25→21:47)
--- NOTE | 2024-08-02 07:57 | CON.CAR ---
Addendum entered and electronically signed by Oriana Reynaga MD 08/02/24 10:27:
I saw and examined the patient.
The Color Expert's note was reviewed and I agree with the note.
Comment: I spoke with the patient and her at the bedside. She recently had pulmonary vein isolation 07/15/24 (also prior PVI 07/2023). She came in with feeling a bit dizzy and off along with abdominal complaints and chest heaviness. Rapid
atrial fibrillation at 175 bpm noted. She had been continued on oral anticoagulation. She was felt to be volume overloaded by exam, elevated proBNP and chest x-ray. She was feeling poorly and hypotensive in the ER and underwent cardioversion
which was successful. Amiodarone which was previously used was restarted. Currently she is doing well maintaining sinus rhythm.
Exam she is laying flat in the bed with at the bedside. No clear evidence of volume overload. Regular rate and rhythm with 2/6 systolic murmur left sternal border. No edema.
Plan at this time:
Telemetry and EKGs independently reviewed by me and stable.
Agree with reintroduction of amiodarone
Increase Toprol-XL to 25 mg twice daily. Follow blood pressure.
Given history of mitral regurgitation that has been moderate to severe reassess echocardiogram prior to discharge.
Continue anticoagulation
Arrange follow-up with electrophysiology.
All questions answered.
Original Note:
Consultation
Consultation Request
Date/Time Consultation Requested: 08/02/2024
Date/Time Consultation Performed: 08/02/2024
Requesting Provider: Dr. Acuña
Performing Provider: Lia Sharma PA-C for Dr. Oriana Reynaga
Reason for Consultation: CHF, Afib w/ RVR
Medical History
-
History of Present Illness:
HPI: Leigh Ann is a 59 year old female with PMH of paroxysmal atrial fibrillation s/p PVI 07/2023 and more recently 07/15/2024, recovered CM, HTN, GO, MR, and AI. She has been doing well s/p recent ablation. Amiodarone was stopped after PVI and when
seen in follow up on 07/27 by her primary chief credit officer, she appeared well and noted no recurrent afib episodes. She then returned home and later that evening noted palpitations with HR into the 170s. She called Dr. Arguello's office and was restarted on
amiodarone 200mg daily. She continued to have rapid heart rates for the past few days without improvement. She then started to have some chest heaviness as well as abdominal discomfort, so came to ER for evaluation. In ER, she was noted to be in
rapid afib by initial ECG w/ HR in the 170s. She was hypotensive which limited ability to rate control, so underwent cardioversion in the ER with successful jain of SR. With rapid afib which had been ongoing for the past few days, also noted
evidence of acute heart failure in ER, so was admitted overnight and started on IV lasix. She remains in SR this AM and is feeling much better, back near baseline. Notes no SOB or chest pain this AM. No edema. Weight down to 211 lbs.
PMH:
Paroxysmal atrial fibrillation
s/p PVI 07/15/2024
s/p PVI 08/06/2023
h/o recovered CM
Hypertension
Obstructive sleep apnea
Mitral regurgitation
Aortic insufficiency
Past Medical History
Past Medical History: Other (In HPI)
Past Surgical History: Cardiac (s/p PVI 07/2023, 06/2024) and Cholecystectomy
Social History
Tobacco: Non-Smoker
Alcohol: None
Drug: None
Personal:
Living: With Family
Employment: Not Employed
Family History
Family History: Hypertension
Allergies / Home Medications
Allergy/AdvReac Type Severity Reaction Status Date / Time
No Known Allergies Allergy Verified 08/01/24 23:11
�Medication �Instructions �Recorded �Confirmed �Type
olmesartan 40 mg tablet 40 mg PO DAILY Heart 05/21/23 08/01/24 History
Disease/Condition
rivaroxaban 20 mg tablet (Xarelto) 20 mg PO QPM Blood Clot 05/21/23 08/01/24 History
Prevention/Tx
metoprolol succinate 25 mg 25 mg PO DAILY #30 tabs 05/12/24 08/01/24 Rx
tablet,extended release 24 hr
cholecalciferol (vitamin D3) 125 125 mcg PO Q48H 07/01/24 08/01/24 History
mcg (5,000 unit) tablet (Vitamin
D3)
nifedipine 30 mg tablet,extended 30 mg PO QPM 07/01/24 08/01/24 History
release 24 hr
amiodarone 200 mg tablet 200 mg PO DAILY 08/01/24 08/01/24 History
Review of Systems
-
History Source: Patient and Family ( at bedside helps w/ translation)
All other systems: Negative unless noted
Physical Exam
Vital Signs
Temp Pulse Resp BP Pulse Ox
98.8 F 70 20 127/70 95
08/02/24 05:56 08/02/24 07:24 08/02/24 05:56 08/02/24 07:24 08/02/24 05:56
Lab Results
08/01/24 23:24
08/02/24 06:39
Troponin I < 0.012 ng/ml 08/01/24 23:24
Jcu-S-Qqsxsjnujsm Pept 6750 pg/ml 08/01/24 23:24
Physical Exam
General: Well Developed, Well Nourished and No Apparent Distress
HEENT: Normocephalic, Anicteric and Moist Mucous Membranes
Respiratory: Clear and Non Labored Respirations
Cardiac: S1/S2, Regular Rhythm and Murmur
Musculoskeletal: No Clubbing, No Cyanosis and No Edema
Skin: Warm and Dry
Neuro: AO x 3 and Nonfocal/Grossly Intact
Psych: Calm
Impression / Plan
-
PCP: Dr. Ricks
Office Automation Clerk: Dr. Arguello
EP: Dr. Paredes
Impression:
Paroxysmal atrial fibrillation w/ RVR
s/p CV in ER 08/01/2024
s/p PVI 07/15/2024
s/p PVI 08/06/2023
Acute HFpEF
h/o recovered CM
Hypertension
Obstructive sleep apnea
Mitral regurgitation
Aortic insufficiency
Echo 08/2023 in [place]: EF 35 to 40% when in A-fib with RVR (do not have actual report)
Echo 10/13/2023: EF 65 to 70%, stage II diastolic dysfunction, mild septal hypertrophy, mild biatrial enlargement, mild mitral stenosis, moderate MR, mild to moderate AI
Echo 05/10/2024: EF 55 to 60%, mild concentric LVH, moderate to severe MR, mild AR, trace TR, PAP 44 mmHg, enlarged RV size, normal RV function
Echo 08/02/2024: Study pending
Plan:
-Presented w/ rapid afib which started on 07/27/2024. No improvement w/ resuming OP amiodarone 200mg daily.
-s/p CV in ER 08/02/2024. Remains in SR this AM. HR stable.
-Will continue amiodarone, but will increase to 200mg BID for the next 2 weeks and then can decrease to 200mg daily thereafter.
-Continue Toprol 25mg daily.
-Continue Xarelto 20mg daily.
-ProBNP elevated at 6750, CXR consistent w/ mild pulmonary edema and tiny b/l pleural effusions.
-Diuresing with IV lasix 40mg BID. Creat stable at 0.7
-Weight down to 211 lbs 08/02. No SOB.
-Check echo. Previously EF improved to 55 to 60% with moderate to severe MR as above.
-BP stable, continue olmesartan.
-Will arrange follow up w/ Dr. Paredes
HPI: Leigh Ann is a 59 year old female with PMH of paroxysmal atrial fibrillation s/p PVI 07/2023 and more recently 07/15/2024, recovered CM, HTN, GO, MR, and AI. She has been doing well s/p recent ablation. Amiodarone was stopped after PVI and when
seen in follow up on 07/27 by her primary chief credit officer, she appeared well and noted no recurrent afib episodes. She then returned home and later that evening noted palpitations with HR into the 170s. She called Dr. Arguello's office and was restarted on
amiodarone 200mg daily. She continued to have rapid heart rates for the past few days without improvement. She then started to have some chest heaviness as well as abdominal discomfort, so came to ER for evaluation. In ER, she was noted to be in
rapid afib by initial ECG w/ HR in the 170s. She was hypotensive which limited ability to rate control, so underwent cardioversion in the ER with successful jain of SR. With rapid afib which had been ongoing for the past few days, also noted
evidence of acute heart failure in ER, so was admitted overnight and started on IV lasix. She remains in SR this AM and is feeling much better, back near baseline. Notes no SOB or chest pain this AM. No edema. Weight down to 211 lbs.
Data Reviewed
-
EKG: Tracing Personally Visualized and interpreted
Radiology: Report Reviewed by me
Labs: Labs Reviewed by me
Old Records: Reviewed
[2024-08-02 08:30] LABS: ALT (SGPT) 35 U/L (0-35); AST (SGOT) 23 U/L (14-36); Alkaline Phosphatase 70 U/L (38-126); Direct Bilirubin 0.4 mg/dl (0.0-0.4); Total Bilirubin 1.6 mg/dl (0.2-1.3); Total Protein 6.2 g/dl (6.3-8.2)
[2024-08-02 09:42] LABS: Reticulocyte Count 2.3 % (0.4-2.8)
[2024-08-02 10:05] LABS: Troponin I 0.032 ng/ml
--- NOTE | 2024-08-02 11:55 | W.PN.HOSP.TC ---
Today's Communication/Plan
-
check UA, COVID-19 and Influenza PCR
HR mgmt as per card
Assessment / Plan
Assessment / Plan
59yo F with PMHX of Afib s/p CV and ablation, HTN, came with palpitation for past 5 days. Her Amiodarone was recently discontinued as she had ablation done few weeks before. Found with Afib with RVR and pulmonary edema. S/P successful CV in ED
A/P:
#Afib with RVR
#acute on chronic HFpEF exacerbation
#Moderate-severe MR
Lasix, follow electrolytes, daily weight, Cr
Cardio consult
Echo
Telemetry
#Essential HTN
cont home meds
#Indirect bilirubinemia
suspect [place]
follow LFT
#Mild leukocytosis
no dysuria, no diarrhea, no respiratory symptoms
Had fever 3 days ago
Check COVID-19 and Influenza PCR
Chest XR without pneumonia
CHeck UA
DVT ppx Xarelto
Full code
I have spent at least 38min reviewing hcart, test results, communication with consultants and providing direct patient care
Anticipated Discharge: 24 - 48 hours
Subjective/Interval History
-
Date of Service: August 02, 2024
Objective Data
-
Labs:
Laboratory Results
08/02/24
06:39
Sodium 141
Potassium 3.7
Chloride 108 H
Carbon Dioxide 25
BUN 14
Creatinine 0.7
Glucose 107 H
Calcium 8.7
Total Bilirubin 1.6 H
AST 23
ALT 35
Alkaline Phosphatase 70
Vital Signs:
Vital Signs
Temp Pulse Resp BP Pulse Ox
99.9 F 62 20 129/81 93
08/02/24 10:49 08/02/24 10:48 08/02/24 10:49 08/02/24 10:48 08/02/24 10:49
Review of Systems
-
History Source: Patient
All other systems: Reviewed and negative
Physical Exam
-
General: No Apparent Distress
HEENT: Normocephalic
Respiratory: Clear to Auscultation
Cardiac: Regular Rhythm
GI: Soft, Nontender and Nondistended
Musculoskeletal: No Clubbing, No Cyanosis and No Edema
Neuro: Awake, Alert, Oriented and AO x 3
Psych: Calm
[2024-08-02 12:50] LABS: COVID-19 Antigen Negative (Negative)
[2024-08-02 13:30] LABS: LDH 228 U/L (120-246)
--- NOTE | 2024-08-02 15:10 | CM ---
Reviewed chart. Met with Mrs. Pillai. Prior to admission she resides with her spouse and two sons in a two story home wth one step to enter. She has a fulllfight of steps to get to bedroom/full bathjroom. She has a powder room on the firt floor.
Prior to admission she was independent with ambulaton and adls. She does not have any DME in the home. She has a prescription plan and uses [facility] pharmacy. The discharge plan is to return home with her family when medically stable.
[2024-08-02 15:23] LABS: Urine Albumin 1+ (Neg - Trace); Urine Bilirubin Negative (Negative); Urine Character Clear (Clear); Urine Color Yellow; Urine Glucose Negative (Negative); Urine Ketone Negative (Negative); Urine Leukocyte 2+ (Negative); Urine Nitrite Negative (Negative); Urine Occult Blood Negative (Negative); Urine Specific Gravity 1.015 (<1.030); Urine Urobilinogen Negative (Neg - 1+)
[2024-08-02] MEDS: LASIX 40 MG IV (15:36)
[2024-08-02 15:48] LABS: Urine Bacteria Few (Negative); Urine Red Blood Cell 0-2 /HPF (0-2); Urine Squamous Cell 0-2 /LPF (Few); Urine White Cell 30-40 /HPF (0-5)
[2024-08-02] MEDS: XARELTO 20 MG PO (17:03)
[2024-08-02] MEDS: STERILE WATER FOR INJECTION 10 ML IV (17:03)
[2024-08-02] MEDS: ROCEPHIN 1000 MG IV (17:03)
--- NOTE | 2024-08-03 02:04 | PTCARENOTE ---
Assumed care of the pt @ 1900. Pt is AAOx3 SR on the monitor VSS denies pain at this time. Pt is independent in the room. Call cuevas within reach.
[2024-08-03 02:35] VITALS: BMI 32.5
[2024-08-03 02:37] VITALS: BP 154/99
[2024-08-03 02:38] VITALS: BP 154/99
[2024-08-03 03:35] LABS: % Basophils 1.2 % (0-2); % Eosinophils 2.7 % (0-6); % Immature Granulocytes 0.3 % (0-0.5); % Lymphocytes 32.9 % (20.5-51.1); % Monocytes 10.8 % (1.7-9.3); % Neutrophils 52.1 % (42.2-75.2); Absolute Basophils 0.1 10^3/uL (0-0.2); Absolute Eosinophils 0.2 10^3/uL (0-0.7); Absolute Lymphocytes 1.9 10^3/uL (1.2-3.4); Absolute Monocytes 0.6 10^3/uL (0.1-0.6); Hematocrit 35.8 % (37.0-47.0); Hemoglobin 12.2 g/dL (12.0-16.0); Mean Corp Hgb Conc. 34.1 g/dL (33.0-37.0); Mean Corpuscular Volume 91.1 fL (81.0-99.0); Nucleated Red Blood Cells % 0 %; Platelet Count 290 10^3/uL (130-400); Red Blood Cell Count 3.93 10^6/uL (4.20-5.40); Red Cell Dist. Width 12.6 % (11.5-14.5); White Blood Cell Count 5.8 10^3/uL (4.8-10.8)
[2024-08-03 04:03] LABS: ALT (SGPT) 32 U/L (0-35); AST (SGOT) 22 U/L (14-36); Albumin 4.1 g/dl (3.5-5.0); Alkaline Phosphatase 71 U/L (38-126); Blood Urea Nitrogen 18 mg/dl (7-17); Calcium 9.2 mg/dl (8.4-10.2); Carbon Dioxide 26 mmol/L (22-30); Chloride 106 mmol/L (98-107); Estimated Creatinine Clearance 80 ml/min; Glucose 96 mg/dl (70-99); Potassium 3.8 mmol/L (3.5-5.1); Sodium 143 mmol/L (135-145); Total Bilirubin 0.9 mg/dl (0.2-1.3); Total Protein 6.5 g/dl (6.3-8.2); eGFR > 60.00
[2024-08-03 04:08] LABS: Troponin I 0.013 ng/ml
[2024-08-03 07:32] VITALS: BP 147/89
[2024-08-03] MEDS: TOPROL XL 25 MG PO (08:05)
[2024-08-03] MEDS: LASIX 40 MG IV (08:05)
[2024-08-03] MEDS: BENICAR 40 MG PO (08:05)
[2024-08-03] MEDS: PACERONE 200 MG PO (08:05)
[2024-08-03 08:30] VITALS: BMI 32.5
--- NOTE | 2024-08-03 09:22 | PTCARENOTE ---
Rec'd pt at handoff. Tele- SR. HR 50-70s. Pt has no complaints this AM. Assessment completed as documented. Plan of care reviewed w/ pt and verbalizes understanding. Currently in bed; call faith w/in reach.
--- NOTE | 2024-08-03 10:57 | W.PN.HOSP.TC ---
Today's Communication/Plan
-
appropriate weight loss. One episode of tachycardia on tele lasting seconds overnight. Pending final recommendations from cardiology
Assessment / Plan
Assessment / Plan
59yo F with PMHX of Afib s/p CV and ablation, HTN, came with palpitation for past 5 days. Her Amiodarone was recently discontinued as she had ablation done few weeks before. Found with Afib with RVR and pulmonary edema. S/P successful CV in ED.
Improved on diuresis, amiodarone reintroduction and increased BB.
A/P:
#Afib with RVR
#acute on chronic HFpEF exacerbation
#Moderate-severe MR
Lasix, follow electrolytes, daily weight, Cr
Cardio consult: diuresis, Amiodarone load (BID for 2 weeks, then daily). Outpatient EP follow up to be arranged by cast iron dipper
Toprol increased to BID
Echo: EF 55-60%, stage 2 diastolic dysfunction, moderate-severe MR, no change since Apr 2024
Telemetry
#Essential HTN
cont home meds
#Indirect bilirubinemia
suspect [place]
follow LFT
#Mild leukocytosis
no dysuria, no diarrhea, no respiratory symptoms
Had fever 3 days ago
Check COVID-19 and Influenza PCR
Chest XR without pneumonia
CHeck UA
DVT ppx Xarelto
Full code
I have spent at least 38min reviewing chart, test results, communication with consultants and providing direct patient care
Anticipated Discharge: Within 24 hours
Subjective/Interval History
-
Date of Service: August 03, 2024
Objective Data
-
Labs:
Laboratory Results
08/03/24
02:43
WBC 5.8
Hgb 12.2
Hct 35.8 L
Plt Count 290
Sodium 143
Potassium 3.8
Chloride 106
Carbon Dioxide 26
BUN 18 H
Creatinine 0.9
Glucose 96
Calcium 9.2
Total Bilirubin 0.9
AST 22
ALT 32
Alkaline Phosphatase 71
Vital Signs:
Vital Signs
Temp Pulse Resp BP Pulse Ox
98.2 F 52 16 147/89 97
08/03/24 07:32 08/03/24 08:00 08/03/24 07:32 08/03/24 07:32 08/03/24 07:32
I&O
08/02/24 08/03/24 08/04/24
06:59 06:59 06:59
Intake Total 960 / 960 400 / 400
Output Total 3650 / 3650 250 / 250
Balance -2690 / -2690 150 / 150
Physical Exam
-
General: No Apparent Distress
HEENT: Normocephalic
Respiratory: Clear to Auscultation
GI: Soft, Nontender and Nondistended
Musculoskeletal: No Clubbing, No Cyanosis, Edema, Right Lower Extrem and Edema, Left Lower Extrem
Neuro: Awake, Alert, Oriented and AO x 3
Psych: Calm
--- NOTE | 2024-08-03 11:24 | W.PN.CARDCBS ---
Today's Communication / Plan
-
Plan:
-Presented w/ rapid afib which started on 07/27/2024. No improvement w/ resuming OP amiodarone 200mg daily. Will discharge on 200mg bid x 2 weeks.
-I reviewed echocardiogram yesterday and believe MR may be a driving force behind her recurring afib and believe she needs VICTOR [facility]UEL to define MV pathology.
-IF she has a structural problem with the valve then she may need MV repair
-Patient has been scheduled to see Dr. Arguello: She will leave the hospital with echo report and copy of her disc. Dr. Arguello will schedule [facility]
-She will stay on amiodarone 200mg bid x 2 weeks then decrease back to 200mg daily. Dr. Arguello can adjust if needed.
-Continue Xarelto 20mg daily.
-Will change Furosemide to 40mg po bid and check renal profile in [address] Arguello appointment
Impression / Plan
-
PCP: Dr. Ricks
Computer Graphics Illustrator: Dr. Arguello
EP: Dr. Paredes
Impression:
Paroxysmal atrial fibrillation w/ RVR
s/p CV in ER 08/01/2024
s/p PVI 07/15/2024
s/p PVI 08/06/2023
Acute HFpEF
h/o recovered CM
Hypertension
Obstructive sleep apnea
Mitral regurgitation
Aortic insufficiency
Echo 08/2023 in [place]: EF 35 to 40% when in A-fib with RVR (do not have actual report)
Echo 10/13/2023: EF 65 to 70%, stage II diastolic dysfunction, mild septal hypertrophy, mild biatrial enlargement, mild mitral stenosis, moderate MR, mild to moderate AI
Echo 05/10/2024: EF 55 to 60%, mild concentric LVH, moderate to severe MR, mild AR, trace TR, PAP 44 mmHg, enlarged RV size, normal RV function
Echo 08/02/2024: Study pending
Plan:
-Presented w/ rapid afib which started on 07/27/2024. No improvement w/ resuming OP amiodarone 200mg daily. Will discharge on 200mg bid
-I reviewed echocardiogram yesterday and believe MR may be a driving force behind her recurring afib and believe she needs VICTOR MANUEL to define MV pathology.
-IF she has a structural problem with the valve then she may need MV repair
-Patient has been scheduled to see Dr. Arguello: She will leave the hospital with echo report and copy of her disc. Dr. Arguello will schedule [facility]
-She will stay on amiodarone 200mg bid x 2 weeks then decrease back to 200mg daily. Dr. Arguello can adjust if needed.
-Continue Xarelto 20mg daily.
-Will change Furosemide to 40mg po bid and check renal profile in [address] Arguello appointment
-I spent 50 minutes reviewing echo with Ms Pillai and her . We discussed mitral valve pathology and need for VICTOR MANUEL and discussed possible findings and outcomes. Coordinated with Dr. Arguello and Dr. Paredes
HPI: Leigh Ann is a 59 year old female with PMH of paroxysmal atrial fibrillation s/p PVI 07/2023 and more recently 07/15/2024, recovered CM, HTN, GO, MR, and AI. She has been doing well s/p recent ablation. Amiodarone was stopped after PVI and when
seen in follow up on 07/27 by her primary social service manager, she appeared well and noted no recurrent afib episodes. She then returned home and later that evening noted palpitations with HR into the 170s. She called Dr. Arguello's office and was restarted on
amiodarone 200mg daily. She continued to have rapid heart rates for the past few days without improvement. She then started to have some chest heaviness as well as abdominal discomfort, so came to ER for evaluation. In ER, she was noted to be in
rapid afib by initial ECG w/ HR in the 170s. She was hypotensive which limited ability to rate control, so underwent cardioversion in the ER with successful jain of SR. With rapid afib which had been ongoing for the past few days, also noted
evidence of acute heart failure in ER, so was admitted overnight and started on IV lasix. She remains in SR this AM and is feeling much better, back near baseline. Notes no SOB or chest pain this AM. No edema. Weight down to 211 lbs.
Progress Note - Computer Graphics Illustrator
Subjective
Date of Service: August 03, 2024
Objective
Labs:
08/03/24 02:43
08/03/24 02:43
Labs
Hgb 12.2 g/dL (12.0-16.0) 08/03/24 02:43
Hct 35.8 % (37.0-47.0) L 08/03/24 02:43
Plt Count 290 10^3/uL (130-400) 08/03/24 02:43
PT Cancelled 08/01/24 23:14
INR Cancelled 08/01/24 23:14
Sodium 143 mmol/L (135-145) 08/03/24 02:43
Potassium 3.8 mmol/L (3.5-5.1) 08/03/24 02:43
BUN 18 mg/dl (7-17) H 08/03/24 02:43
Creatinine 0.9 mg/dL (0.6-1.0) 08/03/24 02:43
Glucose 96 mg/dl (70-99) 08/03/24 02:43
Troponins
08/01/24 08/02/24 08/03/24
23:24 09:33 02:43
Troponin I < 0.012 0.032 0.013
Vital Signs and I&O:
Vital Signs
Temp Pulse Resp BP Pulse Ox
98.2 F 52 16 147/89 97
08/03/24 07:32 08/03/24 08:00 08/03/24 07:32 08/03/24 07:32 08/03/24 07:32
Vital Signs
Temp Pulse Resp BP Pulse Ox
98.2 F 52 16 147/89 97
08/03/24 07:32 08/03/24 08:00 08/03/24 07:32 08/03/24 07:32 08/03/24 07:32
Intake & Output
07/31/24 08/01/24 08/02/24 08/03/24
23:59 23:59 23:59 23:59
Intake Total 960 / 960 400 / 400
Output Total 2850 / 2850 1050 / 1050
Balance -1890 / -1890 -650 / -650
Physical Exam
Physical Exam
Physical Exam:
Gen: Awake. Resting comfortably and lying flat in bed
HEENT: NC/AT, sclera anicteric
Lungs: Clear
CV: Irreg rhythm
Ext: No edema
[2024-08-03 12:04] VITALS: BP 160/86
--- NOTE | 2024-08-03 12:21 | W.DCSUMMARY ---
Discharge Summary
Discharge Data
Date of Admission: 08/02/24
Date of Discharge: 08/03/24
-
Pending Results: No
Hospital Course
59yo F with PMHX of Afib s/p CV and ablation, HTN, came with palpitation for past 5 days. Her Amiodarone was recently discontinued as she had ablation done few weeks before. Found with Afib with RVR and pulmonary edema. S/P successful CV in ED.
Improved on diuresis, amiodarone reintroduction and increased BB. Cardiology concerned for MR to be severe on new echo that would explain recurrent Afib. Communicated to established property valuer and scheduled for close f/u for [facility]UEL and
potensiol scheduling of MV repair. CD and dictation of Echo provided to patient as per property valuer ania. Medically stable for d/c
I have spent at least 38min reviewing chart, test results, communication with consultants and providing direct patient care
Patient was managed for:
#Afib with RVR
#acute on chronic HFpEF exacerbation
#Moderate-severe MR
#Essential HTN
#Indirect bilirubinemia
#Asymptomatic bacteriuria - neg Ucx, no need in Abx
Discharge Plan
-
Patient Disposition: Home (Routine Discharge)
Diet: Low Cholesterol and No added salt
Activity: No restrictions
Driving Restrictions: As prior to admission
Specialty Instructions: Weigh Daily- Call MD for wt gain/loss 3 lbs overnight/5 lbs in 1 week
Instructions: *PCP/Other [place] [facility] Failure Instructions
Referrals:
Saeed Arguello MD [Active] - 08/10/24 1:20 pm (Please call with questions. )
UNKNOWN - PT DOES,NOT KNOW [Family Provider] -
Additional Discharge Medication Instructions: Please continue amiodarone at increased dose of 200mg twice daily for 2 weeks then decrease back to 200mg daily as of 08/17/24.
Prescriptions:
New
furosemide [Lasix] 40 mg tablet
40 mg PO BID Qty: 60 0RF
metoprolol succinate 25 mg Tablet Extended Release 24 Hr
25 mg PO BID Qty: 60 0RF
Continued
olmesartan 40 mg Tablet
40 mg PO DAILY
Xarelto 20 mg Tablet
20 mg PO QPM
nifedipine 30 mg Tablet Extended Release 24hr
30 mg PO QPM
cholecalciferol (vitamin D3) [Vitamin D3] 125 mcg (5,000 unit) Tablet
125 mcg PO Q48H
amiodarone 200 mg Tablet
200 mg PO DAILY
Discontinued
metoprolol succinate 25 mg Tablet Extended Release 24 Hr
25 mg PO DAILY Qty: 30 2RF
Discharge Orders:
Discharge Patient (As Directed); Ordered 08/03/24
Ordered By: Andi Rico
Care Plan Goals
Care Plan Goals:
Problem: Readiness for enhanced knowledge related to diagnosis and treatment plan
Goal: Understand your diagnosis and treatment plan needs, including medications if applicable.
Instructions: Know your diagnosis, underlying causes and treatment plan options, including medications if applicable. Consult with your health care team to learn about your diagnosis and treatment plan, including medications if applicable.
Discharge Date and Time
Print Language: CROATIAN
--- NOTE | 2024-08-03 12:32 | CM ---
Reviewed chart. Met with and Mrs. Pillai to review discharge plans. He states prior to admission she resides with her spouse and two children in a two story home with two steps to enter. She has a full flight of steps to get to bedroom/full
bathroom. She has a powder room on the first floor. Prior to admission she was independnent with ambulation and adls. She lay not have any DME in the home. She has a prescription plan and uses [facility]. The discharge plan is to return home
with her spouse when medically stable.
--- NOTE | 2024-08-03 13:10 | PTCARENOTE ---
IV and tele removed. Discharge instructions reviewed w/ pt and spouse and verbalizes understanding. Belongings collected and sent home w/ pt. Escorted via staff assist and WC. D/c to home.
--- NOTE | 2024-08-04 11:41 | W.HF.CON ---
Heart Failure
- LV Function
Left ventricular function study result: LV Ejection fraction >/= 50%
Ejection Fraction Percentage: 55-60
- ARNI
Patient already on ARNI: No
Heart Failure ARNI Not Indicated: LV Ejection Fraction >/= 40%
- ACEI/ARB
Patient already on ACEI/ARB: Yes
- Beta Cris
Patient already on Evidence Based Beta Cris: Yes
- Mineralocorticord Receptor Antagonist
Patient already on MRA: No
Heart Failure MRA Not Indicated: LV Ejection Fraction > 40%
- SGLT-2 Inhibitor
Patient already on SGLT-2 Inhibitor: No
Heart Failure SGLT-2 Inhibitor Not Indicated: LV Ejection Fraction >40%
- Afib Anticoagulation
Patient already on Anticoagulation for Afib: Yes
- NYHA CHF Classification
NYHA CHF Classification Level: Class III - Symptoms w/ min exertion, interferes w/ nml daily activity (mod/sev. MR)
- ACC/AHA Stage
ACC/AHA Stage: Stage C: Symptomatic Heart Failure
== END 2024-08-03 13:15 | disposition home or self-care (01) ==
LOC: IVU 04:32
PROVIDERS: Student in an Organized Health Care Education/Training Program; ADMITTING PHYSICIAN Internal Medicine; ATTENDING PHYSICIAN Internal Medicine; EMERGENCY PHYSICIAN Emergency Medicine; OTHER PHYSICIAN Internal Medicine Cardiovascular Disease
DX: I48.0 Paroxysmal atrial fibrillation (principal); I50.33 Acute on chronic diastolic (congestive) heart failure; E78.00 Pure hypercholesterolemia, unspecified; I11.0 Hypertensive heart disease with heart failure; G47.33 Obstructive sleep apnea (adult) (pediatric); I08.3 Combined rheumatic disorders of mitral, aortic and tricuspid valves; Z11.52 Encounter for screening for COVID-19; Z79.01 Long term (current) use of anticoagulants; Z79.899 Other long term (current) drug therapy; Z82.49 Family history of ischemic heart disease and other diseases of the circulatory system; Z90.49 Acquired absence of other specified parts of digestive tract
CPT/HCPCS: 71046; 80053; 81003; 81015; 82248; 83615; 83735; 83880; 84100; 84484; 85025; 85045; 87086; 87502; 87811; 92960; 93005; 93306; 96361; 96374; 99152; 99291; G0378

== ENCOUNTER 2024-12-17 04:12 | Emergency (ER) | payer BC, SELFPAY ==
[2024-12-17] VITALS (25 sets, daily range): BP systolic 119–164; BP diastolic 74–124; BMI 35.3
[2024-12-17] MEDS: NSS 1500 IV (05:07)
[2024-12-17 05:18] LABS: Hematocrit 36.3 % (37.0-47.0); Hemoglobin 12.3 g/dL (12.0-16.0); Mean Corp Hgb Conc. 33.9 g/dL (33.0-37.0); Mean Corpuscular Volume 90.8 fL (81.0-99.0); Nucleated Red Blood Cells % 0 %; Platelet Count 237 10^3/uL (130-400); Red Cell Dist. Width 12.4 % (11.5-14.5)
[2024-12-17 05:31] LABS: INR 1.94; PT 22.6 Sec (11.4-14.6)
[2024-12-17 05:32] LABS: APTT 38.3 Sec (23.4-35.0)
[2024-12-17] MEDS: CARDIZEM 20 MG IV (05:47)
[2024-12-17] MEDS: CARDIZEM 125 IV (05:47)
[2024-12-17 05:52] LABS: Urine Character Clear (Clear)
[2024-12-17 06:03] LABS: Urine Squamous Cell 16-20 /LPF (Few)
[2024-12-17 06:04] LABS: Urine White Cell 16-20 /HPF (0-5)
[2024-12-17 06:13] LABS: COVID-19 Antigen Negative (Negative)
--- NOTE | 2024-12-17 06:42 | ED.GENMED ---
History of Present Illness
General
Chief Complaint: Heart Rate Problem
Source: patient
Exam Limitations: none
Time Seen by Provider: 12/17/24 04:29
Nursing documentation reviewed up to this point in time: agreed with
History of Present Illness
History of Present Illness:
Note:
CHIEF COMPLAINT(S)
Palpitations and potential fever.
HISTORY OF PRESENT ILLNESS
The patient is a 59-year-old female with a past medical history significant for atrial fibrillation. She has been experiencing symptoms since Friday, which led her to contact her physician, Dr. Gonzalez. The physician advised managing her condition
with medication and stated that if there was no improvement, she should seek emergency care. The patient is on Rivaroxaban (Xarelto) and reports compliance with her medication regimen. She has a history of undergoing cardiac ablation and mentions a
subsequent cardioversion. Currently, she is unsure if she has a fever but has experienced palpitations since being managed for atrial fibrillation.
PAST MEDICAL AND SURGICAL HISTORY
The patient has a history of atrial fibrillation, managed with cardiac ablation and subsequent cardioversion.
MEDICATIONS
The patient is taking Rivaroxaban (Xarelto).
PHYSICAL EXAM
General: Alert, no acute distress.
Skin: Warm, dry.
Head: Normocephalic, atraumatic.
Neck: Supple, trachea midline.
Eye Ears, nose, mouth and throat: Oral mucosa moist.
Cardiovascular: Normal peripheral perfusion, No edema.
Respiratory: Respirations are non-labored.
Gastrointestinal: Abdomen nondistended
Back: Normal range of motion, Normal alignment.
Musculoskeletal: Normal ROM, normal strength.
Neurological: Alert and oriented to person, place, time, and situation, No focal neurological deficit observed.
Psychiatric: Cooperative, appropriate mood & affect.
PROBLEM LIST
Acute: Palpitations, potential fever.
CHRONIC MEDICAL CONDITIONS SIGNIFICANTLY AFFECTING CARE
Atrial fibrillation.
PLAN
Orders for diagnostics and evaluation of heart rhythm will be initiated to further assess the patients current condition related to atrial fibrillation.
DIFFERENTIAL DIAGNOSIS
The Differential Diagnosis includes, in no particular order and is not limited to:
1. Atrial fibrillation with rapid ventricular response
2. Fever of unknown origin
3. Infection secondary to recent procedures
4. Thyroid dysfunction
5. Coronary artery disease
6. Valvular heart disease
7. Heart failure exacerbation
8. Sinus tachycardia
9. Dehydration
10. Medication side effects or interactions
Disposition:
SUMMARY OF ENCOUNTER
The patient, a 59-year-old female with a history of atrial fibrillation (AFib) with rapid ventricular response (RVR), presented to the emergency department. She had taken diltiazem without achieving conversion to sinus rhythm. The patient has an
extensive history of AFib and has been compliant with her rivaroxaban (Xarelto) regimen. After consenting to synchronized cardioversion, she was administered propofol by myself. One attempt at 200 joules successfully converted her to sinus rhythm.
The patient was monitored post-procedure and finally discharged to home with instructions to follow up with cardiology.
DISPOSITION
Discharge to home.
PLAN
The patient will follow up with her bioinformatics team member to ensure continued management and monitoring of her atrial fibrillation.
MEDICATION RECONCILIATION
The patient is taking rivaroxaban (Xarelto).
MEDICAL DECISION MAKING
-Complexity of Data Reviewed: Chronic conditions affecting care [atrial fibrillation].
-Data:
Category 1:
No additional tests were ordered beyond what was executed during the visit.
Category 2:
None.
Category 3:
None.
-Risk:
Prescription medication management was conducted. We considered escalation of care including admission, given the patients presentation with AFib with RVR. However, due to successful cardioversion and stable post-procedure monitoring, she was
discharged for outpatient management with cardiology follow-up.
DIAGNOSIS
1. Atrial fibrillation with rapid ventricular response (ICD-10: I48.0)
Past History
Past History
ED Past Medical History: Arrthythmia (Paroxysmal atrial fibrillation) and HTN
ED Past Surgical History: Cardiac (A-fib ablation 2023 and again July 15, 2024)
Social History
Tobacco: Non-smoker
Alcohol: None
Drug: None
Personal:
Living: with family
Family History
Family History: Other
Phy Exam
Physical Exam
Physical Exam:
.
Sepsis
Sepsis Screening
Sepsis Assessment: Sepsis Ruled Out
Sepsis Screen
Sepsis Screen: Sepsis Ruled Out
Date: 12/17/24
Time: 07:23
Course
Orders/Labs/Results
Orders:
Orders
12/17/24 04:18
Electrocardiogram (*1) Urgent
Reason for Study: Atrial Fibrillation
EKG- Treatment ONCE
12/17/24 04:27
0.9% Sodium Chloride 1000 ml [Nss] 1,500 ml IV BOLUS
12/17/24 04:29
CR Chest Portable - 1 View Urgent
Comment:
Reason For Exam: fever, cp
Reason Study Needs to be Portable: Patient Unstable
12/17/24 05:00
COVID-19 Antigen Urgent
Source: Nasal Swab
Complete Blood Count/With Diff Urgent
Lactic Acid Q4H
Comment: CANCEL 2nd LACTIC ACID IF 1st LACTIC ACID IS LESS THAN 2
PTT Urgent
Prothrombin Time Urgent
Influenza A+B Rapid Molecular Urgent
KELLIE Source: Nasal Swab
Specimen Description:
12/17/24 05:37
Urinalysis Reflex To Culture Urgent
Date Specimen was Collected: 12/17/24
Time Specimen was Collected: 05:34
Urine Microscopic Reflex Cult Urgent
Urine Culture Urgent
KELLIE Source: U
Specimen Description:
Date Specimen was Collected: 12/17/24
Time Specimen was Collected: 05:34
12/17/24 05:38
Diltiazem HCl [Cardizem] 20 mg IV NOW STA
12/17/24 05:45
Diltiazem 125 mg/125 ml Nss [Cardizem] 125 mg in 125 ml IV PER PROTOCOL
Initial dose in mg/hr, then titrate:: 5
Titrate to keep:: Heart rate 80-100 bpm
Titrate by mg/hr:: 5 mg/hr
Frequency of titrations (minutes):: 15
Maximum dose in mg/hr:: 15
12/17/24 05:46
Comprehensive Metabolic Panel Urgent
Comment: REDRAW
12/17/24 06:12
Propofol [Diprivan] 20 ml .ROUTE .STK-MED
12/17/24 08:30
Lactic Acid Q4H
Comment: CANCEL 2nd LACTIC ACID IF 1st LACTIC ACID IS LESS THAN 2
Abnormal Lab Results
12/17/24 12/17/24
05:00 05:37
WBC 12.1 H 10^3/uL
(4.8-10.8)
RBC 4.00 L 10^6/uL
(4.20-5.40)
Hct 36.3 L %
(37.0-47.0)
Absolute Neuts (auto) 9.1 H 10^3/uL
(1.4-6.5)
Absolute Monos (auto) 1.0 H 10^3/uL
(0.1-0.6)
Neutrophils % 75.3 H %
(42.2-75.2)
Lymphocytes % 15.8 L %
(20.5-51.1)
PT 22.6 H Sec
(11.4-14.6)
APTT 38.3 H Sec
(23.4-35.0)
Urine Ketones 1+ A
(Negative)
Ur Occult Blood Reflex 2+ A
(Negative)
Leukocyte Esterase Rfl 2+ A
(Negative)
Urine RBC 3-6 A /HPF
(0-2)
Urine WBC (Reflex) 16-20 A /HPF
(0-5)
Urine Bacteria (Reflex) Moderate A
(Negative)
Urine Albumin (Reflex) 2+ A
(Neg - Trace)
12/17/24 05:00
Vital Signs
Initial and Last Documented VS:
Initial Vital Signs
Temp Pulse Resp BP Pulse Ox
102.3 F H 152 16 164/124 97
12/17/24 04:24 12/17/24 04:24 12/17/24 04:24 12/17/24 04:24 12/17/24 04:24
Last Documented Vital Signs
Temp Pulse Resp BP Pulse Ox
98.5 F 72 24 126/74 95
12/17/24 06:50 12/17/24 07:00 12/17/24 07:00 12/17/24 07:00 12/17/24 07:00
Procedures
Moderate Sedation
Moderate Sedation Start Time(when first medication is given): 06:30
Moderate Sedation Procedure End Time: 06:34
Cardioversion
Indication:: Afib
Performed by:: Myself
Synchronized?: Yes
Energy Used: 200 joules
Number of attempts: 1
Successful?: Yes
ASA Risk Score: Class I
Any reaction or bad outcome to prior sedation/anesthesia?: No history of a reaction
Sedation level to be attained: minimal
Chart and allergies reviewed: Yes
Patient reassessed prior to sedation: Yes
Time out completed at (validating right patient & procedure): 06:25
History of difficult intubation: No
Airway free of obstruction: Yes
Patient has a gag reflex: Yes
Patient is able to open mouth: Yes
Patient has no dentures: Yes
Patient has no loose teeth: Yes
Medication administered by Provider during Moderate Sedation: IV Propofol (mg)
Total dose administered: 80
Time drug administered: 06:30
Start Time: 06:30
Stop Time: 06:45
*Pulse Oximetry
SaO2: 98
Oxygen Mode of Delivery: Room air
Patient hypoxic: no
*Critical Care Note
Total Time (30-74mins, 75-104mins- exclusive of procedures): Not Applicable
ED Attending Note
-
Portions of this chart may have been created with voice recognition software.� Occasional wrong word or��sound alike� substitutions may have occurred due to the inherent limitations of voice recognition software.
Discharge Plan
Departure
Patient Disposition: Home (Routine Discharge)
Date of Disposition: 12/17/24
Time of Disposition: 07:18
Patient with high blood pressure during this ER visit?: Yes
Condition: Good
Discharge Problem:
Atrial fibrillation, synchronized cardioversion
Instructions: Atrial Fibrillation (DC), MODERATE SEDATION ADULT, BLOOD PRESSURE
Prescriptions:
No Action
olmesartan 40 mg Tablet
40 mg PO DAILY
Xarelto 20 mg Tablet
20 mg PO QPM
nifedipine 30 mg Tablet Extended Release 24hr
30 mg PO QPM
cholecalciferol (vitamin D3) [Vitamin D3] 125 mcg (5,000 unit) Tablet
125 mcg PO Q48H
amiodarone 200 mg Tablet
200 mg PO DAILY
furosemide [Lasix] 40 mg tablet
40 mg PO BID Qty: 60 0RF
metoprolol succinate 25 mg Tablet Extended Release 24 Hr
25 mg PO BID Qty: 60 0RF
Referrals:
[facility] [Provider Group]
Chepe Ricks MD [Family Provider, Internal Medicine]
Activity Restrictions/Additional Instructions:
Please follow-up with your bioinformatics team member
Thank You for choosing [facility].
It was a pleasure meeting you and taking part in your care. We hope for your continued healing and wellness.
Please read discharge instructions in their entirety. However, they are for general education and may not describe your exact diagnosis at discharge. Information on your ER visit and medical conditions were discussed with you along with appropriate
follow up information...
If indicated, please take your medications as instructed and indicated on discharge paperwork.
Please schedule a follow up appointment as directed. Call to schedule an appointment
Please return to the emergency department with ANY change in, persisting, or worsening of symptoms. If any of your symptoms do not improve, or persist, or become more severe within 6-12 hours, please return to the emergency department for further
care.
Please return to the emergency department if you develop a headache, neck pain/stiffness, fever greater than 100.4F, chest pain, shortness of breath, persistent nausea, vomiting, slurred speech, difficulty walking, numbness/tingling, weakness, signs
of infection or any other symptoms that are worrisome to you.
If you have any questions or concerns please do not hesitate to call the Hospital at
Interventions
Interventions:
*Risk Screen - Suicide Last Done: 12/17/24 04:24
*General Assessment Last Done: 12/17/24 04:24
*Neglect/Abuse Screening Last Done: 12/17/24 04:24
*ED- Fall Risk Assessment Last Done: 12/17/24 05:17
*ED COVID-19 Vaccine History Last Done: 12/17/24 05:17
ED- Cardiac Assessment Last Done: 12/17/24 05:17
ED- Pulmonary Assessment Last Done: 12/17/24 05:17
Discharge Date and Time
Print Language: [id number]
[2024-12-17 08:05] LABS: ALT (SGPT) 31 U/L (0-35); AST (SGOT) 32 U/L (14-36); Albumin 4.2 g/dl (3.5-5.0); Alkaline Phosphatase 49 U/L (38-126); Blood Urea Nitrogen 15 mg/dl (7-17); Calcium 8.9 mg/dl (8.4-10.2); Carbon Dioxide 22 mmol/L (22-30); Chloride 110 mmol/L (98-107); Estimated Creatinine Clearance 108 ml/min; Glucose 114 mg/dl (70-99); Potassium 4.0 mmol/L (3.5-5.1); Sodium 140 mmol/L (135-145); Total Protein 6.7 g/dl (6.3-8.2); eGFR > 60.00
== END 2024-12-17 09:25 | disposition home or self-care (01) ==
LOC: EMR 04:12
PROVIDERS: EMERGENCY PHYSICIAN Student in an Organized Health Care Education/Training Program; FAMILY PHYSICIAN Internal Medicine
DX: I48.0 Paroxysmal atrial fibrillation (principal); I10 Essential (primary) hypertension; Z79.01 Long term (current) use of anticoagulants; Z11.52 Encounter for screening for COVID-19
CPT/HCPCS: 92960; 99285; 96374; 96361; 99152; 71045; 80053; 81003; 81015; 83605; 85025; 85610; 85730; 87086; 87502; 87811; 93005